=== PATIENT | female | born 1990 | race Two or more races ===

== ENCOUNTER 2016-11-23 19:40 | Emergency (ER) | payer OTHER ==
[2016-11-23 19:54] VITALS: BP 138/83; PULSE 90; TEMP 98.7; BMI 40.4
--- NOTE | 2016-11-23 22:32 | PDOC ---
History of Present Illness - History of Present Illness Initial Comments: 11/23/16 23:17 The patient is a 26 year old female with no past medical hx who presents to the ED complaining of a flare up of hidradenitis this evening. She reports she is experiencing pain to her chest area secondary to her flare up. The patient denies fever, chills The patient denies nausea, vomiting The patient denies dysuria, frequency Social: Former smoker Surgical:Abdominal Allergies:NKDA PCP: Dr. Santoyo <Nicole Becker - Last Filed: 11/23/16 23:17> <Dasia Zepeda - Last Filed: 11/23/16 23:33> - General Chief Complaint: Pain, Acute Stated Complaint: PAIN Time Seen by Provider: 11/23/16 22:15 Past History <Nicole Becker - Last Filed: 11/23/16 23:17> - Past Medical History Cardiac Disorders: Yes (IRREGULAR HEARTBEAT., palpitations) Suicide Attempt (Hx): No Thyroid Disease: Yes (HYPER, GRAVES DISEASE.) Other medical history: hidradenitis - Surgical History Abdominal Surgery: Yes (PARTIAL TUMMY TUCK) - Psycho/Social/Smoking Cessation Hx Anxiety: No Suicidal Ideation: No Smoking Status: Yes Smoking History: Former smoker Have you smoked in the past 12 months: No Number of Cigarettes Smoked Daily: 0 If you are a former smoker, when did you quit?: 2014 Cigars Per Day: 0 Information on smoking cessation initiated: No 'Breaking Loose' booklet given: 11/16/13 Hx Alcohol Use: No Drug/Substance Use Hx: No Substance Use Type: None <Dasia Zepeda - Last Filed: 11/23/16 23:33> - Past Medical History Allergies/Adverse Reactions: Allergies Allergy/AdvReac Type Severity Reaction Status Date / Time No Known Allergies Allergy Verified 11/23/16 19:50 Home Medications: Ambulatory Orders Levothyroxine [Synthroid -] 137 mcg PO DAILY 10/15/15 Sulfamethoxazole/Trimethoprim [Bactrim Ds -] 1 tab PO BID #20 tablet 11/23/16 Review of Systems - Review of Systems Able to Perform ROS?: Yes Comments:: 11/23/16 23:18 CONSTITUTIONAL: Absent: fever, chills, diaphoresis, generalized weakness, malaise, loss of appetite HEENT: Absent: rhinorrhea, nasal congestion, throat pain, throat swelling, difficulty swallowing, mouth swelling, ear pain, eye pain, visual Changes CARDIOVASCULAR: Absent: chest pain, syncope, palpitations, irregular heart rate, lightheadedness , peripheral edema RESPIRATORY: Absent: cough, shortness of breath, dyspnea with exertion, orthopnea, wheezing, stridor, hemoptysis GASTROINTESTINAL: Absent: abdominal pain, abdominal distension, nausea, vomiting, diarrhea, constipation, melena, hematochezia GENITOURINARY: Absent: dysuria, frequency, urgency, hesitancy, hematuria, flank pain, genital pain MUSCULOSKELETAL: Absent: myalgia, arthralgia, joint swelling SKIN: +Lump to her left chest Absent: rash, itching, pallor HEMATOLOGIC/IMMUNOLOGIC: Absent: easy bleeding, easy bruising, lymphadenopathy, frequent infections ENDOCRINE: Absent: unexplained weight gain, unexplained weight loss, heat intolerance, cold intolerance NEUROLOGIC: Absent: headache, focal weakness or paresthesias, dizziness, unsteady gait, seizure, mental status changes, bladder or bowel incontinence PSYCHIATRIC: Absent: anxiety, depression, suicidal or homicidal ideation, hallucinations. <Nicole Becker - Last Filed: 11/23/16 23:17> *Physical Exam - Vital Signs Last Vital Signs Temp Pulse Resp BP Pulse Ox 98.7 F 90 18 138/83 100 11/23/16 19:52 11/23/16 19:52 11/23/16 19:52 11/23/16 19:52 11/23/16 19:52 - Physical Exam Comments: 11/23/16 23:18 GENERAL: Well developed, well nourished. Awake and alert. No acute distress. HEENT: Normocephalic, atraumatic. PERRLA, EOMI. No conjunctival pallor. Sclera are non- icteric. Moist mucous membranes. Oropharynx is clear. NECK: Supple. Full ROM. No JVD. Carotid pulses 2+ and symmetric, without bruits. No thyromegaly. No lymphadenopathy. CARDIOVASCULAR: Regular rate and rhythm. No murmurs, rubs, or gallops. Distal pulses are 2+ and symmetric. PULMONARY: No evidence of respiratory distress. Lungs clear to auscultation bilaterally. No wheezing, rales or rhonchi. ABDOMINAL: Soft. Non-tender. Non-distended. No rebound or guarding. No organomegaly. Normoactive bowel sounds. MUSCULOSKELETAL Normal range of motion at all joints. No bony deformities or tenderness. No CVA tenderness. EXTREMITIES: No cyanosis. No clubbing. No edema. No calf tenderness. SKIN: + 3 cm area of induration and tenderness near left breast, 8oclock, no pointing no fluctuance. Warm and dry. Normal capillary refill. No rashes. No jaundice. NEUROLOGICAL: Alert, awake, appropriate. Cranial nerves 2-12 intact. No deficits to light touch and temperature in face, upper extremities and lower extremities. No motor deficits in the in face, upper extremities and lower extremities. Normoreflexic in the upper and lower extremities. Normal speech. Toes are down-going bilaterally. Gait is normal without ataxia. PSYCHIATRIC: Cooperative. Good eye contact. Appropriate mood and affect. <Nicole Becker - Last Filed: 11/23/16 23:17> - Vital Signs Last Vital Signs Temp Pulse Resp BP Pulse Ox 98.7 F 90 18 138/83 100 11/23/16 19:52 11/23/16 19:52 11/23/16 19:52 11/23/16 19:52 11/23/16 19:52 <Dasia Zepeda - Last Filed: 11/23/16 23:33> Medical Decision Making - Medical Decision Making 11/23/16 23:30 26-year-old female with a long history of hidradenitis presents because of an small abscess near her left abscess. This point, it is not fluctuant, there is some mild induration. There is no evidence of cellulitis. She is not febrile. She's had multiple abscesses and has actually been seen by a surgeon who has done skin grafts to her legs and inner thigh areas. And will be started on Bactrim because the abscess is not at this stage appropriate FOR AN i AND D <Dasia Zepeda - Last Filed: 11/23/16 23:33> *DC/Admit/Observation/Transfer - Attestations Scribe Attestion: 11/23/16 23:18 Documentation prepared by Nicole Becker, acting as manager medical writing for Dasia Zepeda MD/DO. <Nicole Becker - Last Filed: 11/23/16 23:17> <Dasia Zepeda - Last Filed: 11/23/16 23:33> Diagnosis at time of Disposition: Breast abscess, Hydradenitis - Discharge Dispostion Disposition: HOME Condition at time of disposition: Stable - Prescriptions Prescriptions: Sulfamethoxazole/Trimethoprim [Bactrim Ds -] 1 tab PO BID #20 tablet - Referrals Referrals: Shawn Santoyo MD [Primary Care Provider] - - Patient Instructions Printed Discharge Instructions: DI for Skin Abscess Additional Instructions: Please grape picker your antibiotics at your pharmacy. Follow-up with your primary medical doctor.
[2016-11-23] MEDS ORDERED: SULFAMETHOXAZOLE/TRIMETHOPRIM 800MG/160MG D.S. TABLET PO ONE (22:51)
[2016-11-23] MEDS ORDERED: OXYCODONE/APAP 5/325MG COMBO TABLET PO ONE (22:54)
[2016-11-23] MEDS ORDERED: SULFAMETHOXAZOLE/TRIMETHOPRIM 800MG/160MG D.S. TABLET ONE (23:27)
[2016-11-23] MEDS ORDERED: OXYCODONE/APAP 5/325MG COMBO TABLET ONE (23:27)
== END 2016-11-23 23:57 | disposition home or self-care (01) ==
LOC: JER 19:40 → JERFT 19:40 → JER 23:57
DX: N61.1 Abscess of the breast and nipple (principal); L73.2 Hidradenitis suppurativa; R00.2 Palpitations; L49.9 Exfoliation due to erythematous condition involving 90 or more percent of body surface; E05.00 Thyrotoxicosis with diffuse goiter without thyrotoxic crisis or storm; Z87.891 Personal history of nicotine dependence
CPT/HCPCS: 99281-25

== ENCOUNTER 2016-12-24 21:13 | Emergency (ER) | payer OTHER ==
[2016-12-24 21:24] VITALS: BP 123/66; PULSE 87; TEMP 97; BMI 42.4
--- NOTE | 2016-12-24 21:34 | PDOC ---
History of Present Illness - General Chief Complaint: Pain Stated Complaint: RT WRIST INJURY History Source: Patient Exam Limitations: No Limitations - History of Present Illness Occurred: reports: just prior to arrival Upper Extremity Pain Location: right: wrist Method of Injury: reports: twisted Modifying Factors: improves with: None Extremity Pain Location - Extremity Pain Location Extremity Pain Locations: right: other (wrist) Past History - Travel Traveled outside of the country in the last 30 days: No Close contact w/someone who was outside of country & ill: No - Past Medical History Allergies/Adverse Reactions: Allergies Allergy/AdvReac Type Severity Reaction Status Date / Time No Known Allergies Allergy Verified 12/24/16 21:20 Home Medications: Ambulatory Orders Levothyroxine [Synthroid -] 137 mcg PO DAILY 10/15/15 Oxycodone HCl/Acetaminophen [Percocet 5-325 mg Tablet] 1 tab PO BID #4 tablet MDD 2 11/23/16 Sulfamethoxazole/Trimethoprim [Bactrim Ds -] 1 tab PO BID #20 tablet 11/23/16 Cardiac Disorders: Yes (IRREGULAR HEARTBEAT., palpitations) Suicide Attempt (Hx): No Thyroid Disease: Yes (HYPER, GRAVES DISEASE.) - Surgical History Abdominal Surgery: Yes (PARTIAL TUMMY TUCK) - Immunization History Immunization Up to Date: No - Psycho/Social/Smoking Cessation Hx Anxiety: No Suicidal Ideation: No Smoking Status: Yes Smoking History: Never smoked Have you smoked in the past 12 months: No Number of Cigarettes Smoked Daily: 0 If you are a former smoker, when did you quit?: 2014 Cigars Per Day: 0 Information on smoking cessation initiated: Yes 'Breaking Loose' booklet given: 11/16/13 Hx Alcohol Use: No Drug/Substance Use Hx: No Substance Use Type: None Review of Systems - Review of Systems Able to Perform ROS?: Yes Comments:: right wrist pain neg ext numbness/tingling sensation Is the patient limited Azerbaijani proficient: No *Physical Exam - Vital Signs Last Vital Signs Temp Pulse Resp BP Pulse Ox 97.0 F L 87 20 123/66 99 12/24/16 21:17 12/24/16 21:17 12/24/16 21:17 12/24/16 21:17 12/24/16 21:17 - Physical Exam Comments: 12/24/16 21:32 Right wrist Decreased R.O.M./pain 2+radial pulse neg obv deformities Slight pain on lat aspect on palp Right hand F.R>O.M. Neg obv def Neg pain on palp Right elbow F.R.O.M. neg pain on palp neg obv deformities Progress Note - Progress Note Progress Note: 26-year-old female who is right hand dominant presents to the emergency department complaining of right wrist pain. 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 Patient denies any elbow, hand pain or extremity numbness or tingling sensation. The pain is exacerbated on touch and hyperextension and alleviated at rest with ice. *DC/Admit/Observation/Transfer Diagnosis at time of Disposition: Right wrist sprain Qualifiers: Encounter type: initial encounter Qualified Code(s): S63.501A - Unspecified sprain of right wrist, initial encounter - Discharge Dispostion Disposition: HOME Condition at time of disposition: Fair - Referrals Referrals: Shawn Santoyo MD [Primary Care Provider] - Genaro Lau MD [Staff Physician] - - Patient Instructions Additional Instructions: Follow up with the orthopedic surgeon listed on your discharge form Ice; 20 mins on alternating with 20 mins off for 48 hours while awake. Rest Elevate Follow up with your orthopedic surgeon or the one listed on the discharge form. Return to the ER for severe/persistent/worsening symptoms, extremity numbness/ tingling sensation.
== END 2016-12-24 23:43 | disposition home or self-care (01) ==
LOC: SUPCPDRO 21:13 → JERFT 21:13 → JER 21:13
DX: S63.591A Other specified sprain of right wrist, initial encounter (principal); X50.9XXA Other and unspecified overexertion or strenuous movements or postures, initial encounter; Y93.89 Activity, other specified; Y92.218 Other school as the place of occurrence of the external cause; Y99.0 Civilian activity done for income or pay
CPT/HCPCS: 73110-TC-RT; 99283-25

== ENCOUNTER 2017-05-07 13:07 | Emergency (ER) | payer OTHER ==
[2017-05-07 13:13] VITALS: TEMP 98.8; BMI 41.5
[2017-05-07] MEDS ORDERED: SODIUM CHLORIDE 1,000 ML IV STA (14:22)
[2017-05-07] MEDS ORDERED: morphine CARPU-JECT 4 MG/1 ML DISP.SYRIN IVPUSH ONE (14:22)
--- NOTE | 2017-05-07 14:22 | PDOC ---
History of Present Illness - General History Source: Patient, Old Records Exam Limitations: No Limitations - History of Present Illness Initial Comments: 05/07/17 14:28 The patient is a 19 year old female with history of hypothyroidism who presents to the ED with a pilonidal abscess. The patient states that she has had the abscess since the age of 7 and has since undergone many drainage procedures. She reports pain to the area. The patient denies any recent illness, fever, chills, nausea, vomiting, diarrhea, cough, shortness of breath, chest pain, or urinary symptoms. PCP: Shawn Santoyo <Ann Jacome - Last Filed: 05/07/17 14:30> <Liliana Lindo - Last Filed: 05/07/17 18:11> <Maria M Payton - Last Filed: 05/08/17 10:53> - General Chief Complaint: Abscess Boil Stated Complaint: CYST Time Seen by Provider: 05/07/17 13:50 Past History <Ann Jacome - Last Filed: 05/07/17 14:30> <Liliana Lindo - Last Filed: 05/07/17 18:11> - Past Medical History Cardiac Disorders: Yes (IRREGULAR HEARTBEAT., palpitations) Suicide Attempt (Hx): No Thyroid Disease: Yes (HYPER, GRAVES DISEASE.) - Surgical History Abdominal Surgery: Yes (PARTIAL TUMMY TUCK) - Immunization History Immunization Up to Date: No - Psycho/Social/Smoking Cessation Hx Anxiety: No Suicidal Ideation: No Smoking Status: Yes Smoking History: Never smoked Have you smoked in the past 12 months: No Number of Cigarettes Smoked Daily: 0 If you are a former smoker, when did you quit?: 2014 Cigars Per Day: 0 'Breaking Loose' booklet given: 11/16/13 Hx Alcohol Use: No Drug/Substance Use Hx: No Substance Use Type: None <Maria M Payton - Last Filed: 05/08/17 10:53> - Past Medical History Allergies/Adverse Reactions: Allergies Allergy/AdvReac Type Severity Reaction Status Date / Time No Known Allergies Allergy Verified 05/07/17 13:13 Home Medications: Ambulatory Orders Levothyroxine [Synthroid -] 137 mcg PO DAILY 10/15/15 Cephalexin Monohydrate [Keflex -] 500 mg PO Q6H #28 capsule 05/07/17 Ibuprofen 600 mg PO TID PRN #21 tablet 05/07/17 Oxycodone HCl/Acetaminophen [Percocet 5-325 mg Tablet -] 1 tab PO Q6H PRN #12 tablet MDD 4 05/07/17 Sulfamethoxazole/Trimethoprim [Bactrim Ds -] 1 tab PO BID #14 tablet 05/07/17 Review of Systems - Review of Systems Able to Perform ROS?: Yes Comments:: 05/07/17 14:28 GENERAL/CONSTITUTIONAL: No fever or chills. No weakness. HEAD, EYES, EARS, NOSE AND THROAT: No change in vision. No ear pain or discharge. No sore throat. CARDIOVASCULAR: No chest pain or shortness of breath. RESPIRATORY: No cough, wheezing, or hemoptysis. GASTROINTESTINAL: No nausea, vomiting, diarrhea or constipation. GENITOURINARY: No dysuria, frequency, or change in urination. MUSCULOSKELETAL: No joint or muscle swelling or pain. No neck or back pain. SKIN: Present: pilonidal abscess No rash NEUROLOGIC: No headache, vertigo, loss of consciousness, or change in strength/ sensation. ENDOCRINE: No increased thirst. No abnormal weight change. HEMATOLOGIC/LYMPHATIC: No anemia, easy bleeding, or history of blood clots. ALLERGIC/IMMUNOLOGIC: No hives or skin allergy. All Other Systems: Reviewed and Negative <Ann Jacome - Last Filed: 05/07/17 14:30> *Physical Exam - Vital Signs Last Vital Signs Temp Pulse Resp BP Pulse Ox 98.8 F 106 H 20 147/91 97 05/07/17 13:10 05/07/17 13:10 05/07/17 13:10 05/07/17 13:10 05/07/17 13:10 <Ann Jacome - Last Filed: 05/07/17 14:30> - Vital Signs Last Vital Signs Temp Pulse Resp BP Pulse Ox 98.8 F 90 18 127/76 99 05/07/17 13:10 05/07/17 18:01 05/07/17 18:01 05/07/17 18:01 05/07/17 18:01 <Liliana Lindo - Last Filed: 05/07/17 18:11> - Vital Signs Last Vital Signs Temp Pulse Resp BP Pulse Ox 98.8 F 106 H 20 147/91 97 05/07/17 13:10 05/07/17 13:10 05/07/17 13:10 05/07/17 13:10 05/07/17 13:10 - Physical Exam Comments: GENERAL: Awake, alert, and fully oriented. Tearful, appears in pain. HEAD: No signs of trauma EYES: PERRLA, EOMI, sclera anicteric, conjunctiva clear ENT: Auricles normal inspection, hearing grossly normal, nares patent, oropharynx clear without exudates. Moist mucosa NECK: Normal ROM, supple, no lymphadenopathy, JVD, or masses LUNGS: Breath sounds equal, clear to auscultation bilaterally. No wheezes, and no crackles HEART: Regular rate and rhythm, normal S1 and S2, no murmurs, rubs or gallops ABDOMEN: Soft, nontender, normoactive bowel sounds. No guarding, no rebound. No masses EXTREMITIES: Normal range of motion, no edema. No clubbing or cyanosis. No cords, erythema, or tenderness NEUROLOGICAL: Cranial nerves II through XII grossly intact. Normal speech, normal gait SKIN: Warm, Dry, normal turgor. +2 indurated, fluctuant areas to the low back just above the crease of the buttocks. Patient unable to lie on her back due to severe pain. <Maria M Payton - Last Filed: 05/08/17 10:53> Procedures - Incision and Drainage I&D Site: Bilateral: Buttock (pilonidal) Anesthesia: 1% Lidocaine Volume(ml): 2 Blade Size: 11 Attempts: 2 Complications: none Dressing: Yes Progress: Pt was extremely anxious about having I&D due to prior negative experiences. I gave her morphine initially due to extreme pain, difficulty with getting an adequate exam. Then prior to I&D, I offered her IV valium to help with anxiety. She accepted. It helped significantly, although she was still awake and oriented during procedure. Area was cleansed, pretreated with ethyl chloride, then injected locally with 1% lidocaine without epi. Both of the fluctuant areas were incised. The right-sided lesion did not drain anything (consistent with prior history as per patient- it is usually very hard but does not drain). The left-sided lesion had multiple loculations that were broken up with hemostat , with moderate drainage of purulent material, which was cultured. Gauze dressing was placed. Pt tolerated well. No complications. <Maria M Payton - Last Filed: 05/08/17 10:53> ED Treatment Course - LABORATORY CBC & Chemistry Diagram: 05/07/17 14:43 05/07/17 14:43 - ADDITIONAL ORDERS Additional order review: Laboratory Results 05/07/17 05/07/17 14:43 14:43 Sodium 142 Potassium 3.9 Chloride 105 Carbon Dioxide 30 Anion Gap 7 L BUN 11 D Creatinine 0.8 Creat Clearance w eGFR > 60 Random Glucose 76 D Calcium 8.5 Total Bilirubin 0.3 D AST 14 L ALT 22 Alkaline Phosphatase 93 Total Protein 6.9 Albumin 3.3 L Serum , Qual Negative 05/07/17 14:43 RBC 4.39 MCV 86.7 MCHC 33.2 RDW 13.7 MPV 10.1 Neutrophils % 80.8 D Lymphocytes % 12.8 D Monocytes % 5.3 Eosinophils % 0.7 Basophils % 0.4 - Medications Given in the ED: ED Medications Discontinued Medications Generic Name Dose Route Start Last Admin Trade Name Freq PRN Reason Stop Dose Admin Diazepam 5 mg 05/07/17 15:54 05/07/17 15:59 Valium Injection - IVPUSH 05/07/17 15:55 5 mg ONCE ONE Administration Diazepam 5 mg 05/07/17 16:21 05/07/17 16:50 Valium Injection - IVPUSH 05/07/17 16:22 5 mg ONCE ONE Administration Sodium Chloride 1,000 mls @ 1,000 mls/hr 05/07/17 14:22 05/07/17 14:45 Normal Saline - IV 05/07/17 15:21 1,000 mls/hr ASDIR STA Administration Morphine Sulfate 4 mg 05/07/17 14:22 05/07/17 14:45 Morphine Injection - IVPUSH 05/07/17 14:23 4 mg ONCE ONE Administration <Liliana Lindo - Last Filed: 05/07/17 18:11> - LABORATORY CBC & Chemistry Diagram: 05/07/17 14:43 05/07/17 14:43 <Maria M Payton - Last Filed: 05/08/17 10:53> Medical Decision Making - Medical Decision Making Instructed patient to use warm salt water soaks twice a day to keep the wound draining. I also counseled her that with the depth of the wound, it is possible that another area may accumulate. Return to the ED if it becomes more painful and swollen, as she may need additional drainage. Keflex and bactrim for abx. DC with outpatient PMD f/u. Endorsed to Dr. Lindo at 6pm. I have done the discharge paperwork, but she is still slightly drowsy from the valium. Monitor until she is back to baseline. <Maria M Payton - Last Filed: 05/08/17 10:53> *DC/Admit/Observation/Transfer - Attestations Scribe Attestion: 05/07/17 14:29 Documentation prepared by Ann Jacome, acting as medical assistant cardiology for Maria M Payton MD. <Ann Jacome - Last Filed: 05/07/17 14:30> <Liliana Lindo - Last Filed: 05/07/17 18:11> - Discharge Dispostion Admit: No <Maria M Payton - Last Filed: 05/08/17 10:53> Diagnosis at time of Disposition: Pilonidal abscess - Discharge Dispostion Disposition: HOME Condition at time of disposition: Stable - Prescriptions Prescriptions: Sulfamethoxazole/Trimethoprim [Bactrim Ds -] 1 tab PO BID #14 tablet Ibuprofen 600 mg PO TID PRN #21 tablet PRN Reason: Pain Cephalexin Monohydrate [Keflex -] 500 mg PO Q6H #28 capsule Oxycodone HCl/Acetaminophen [Percocet 5-325 mg Tablet -] 1 tab PO Q6H PRN #12 tablet MDD 4 PRN Reason: Severe Pain - Referrals Referrals: Shawn Santoyo MD [Primary Care Provider] - - Patient Instructions Printed Discharge Instructions: DI for Incision and Drainage of a Skin Abscess Additional Instructions: Warm salt water soaks twice per day. Gauze dressing. Return to the ER if the pain worsens or the swelling returns. - Post Discharge Activity Work/School Note: Parent(s) Back to Work Note
[2017-05-07] MEDS ORDERED: morphine CARPU-JECT 4 MG/1 ML DISP.SYRIN ONE (14:35)
[2017-05-07 14:46] LABS: BASOPHIL 0.4 % (0-2.0); EOSINOPHIL 0.7 % (0-4.5); MCH 28.7 pg (25.7-33.7); MCHC 33.2 g/dl (32.0-36.0); MEAN CELL VOLUME 86.7 fl (80-96); MEAN PLT VOLUME 10.1 fl (7.5-11.1); NEUTROPHILS 80.8 % (42.8-82.8); PLATELET COUNT 166 K/MM3 (134-434); RDW 13.7 % (11.6-15.6); WHITE BLOOD COUNT 12.4 K/mm3 (4.0-10.0)
[2017-05-07 15:15] LABS: ALBUMIN 3.3 g/dl (3.4-5.0); ALK PHOS 93 U/L (45-117); ANION GAP 7 (8-16); BILIRUBIN,TOTAL 0.3 mg/dL (0.2-1.0); CALCIUM 8.5 mg/dL (8.5-10.1); CO2 30 mmol/L (21-32); CREATININE 0.8 mg/dL (0.55-1.02); GLUCOSE,RANDOM 76 mg/dL (74-106); SGOT/AST 14 U/L (15-37); SGPT/ALT 22 U/L (12-78); TOT PROT 6.9 g/dl (6.4-8.2)
[2017-05-07] MEDS ORDERED: diazePAM CARPU-JECT 10 MG/2 ML DISP.SYRIN IVPUSH ONE ×2 (15:54→16:21)
[2017-05-07] MEDS ORDERED: diazePAM CARPU-JECT 10 MG/2 ML DISP.SYRIN ONE (15:56)
[2017-05-07] MEDS ORDERED: CEPHALEXIN MONOHYDRATE 500 MG CAPSULE (UD) PO ONE (17:20)
[2017-05-07] MEDS ORDERED: FLUCONAZOLE 100 MG TABLET (UD) PO ONE (17:20)
[2017-05-07] MEDS ORDERED: SULFAMETHOXAZOLE/TRIMETHOPRIM 800MG/160MG D.S. TABLET PO ONE (17:20)
[2017-05-07] MEDS ORDERED: FLUCONAZOLE 100 MG TABLET (UD) ONE (17:47)
[2017-05-07] MEDS ORDERED: SULFAMETHOXAZOLE/TRIMETHOPRIM 800MG/160MG D.S. TABLET ONE (17:47)
[2017-05-07] MEDS ORDERED: CEPHALEXIN MONOHYDRATE 250 MG CAPSULE (FP) ONE (17:47)
[2017-05-07 18:03] VITALS: BP 127/76; PULSE 90
== END 2017-05-07 18:03 | disposition home or self-care (01) ==
LOC: JER 13:07
PROC: 0H98XZZ Drainage of Buttock Skin, External Approach (ICD-10-PCS; principal; 2017-05-07)
PROC: 3E033NZ Introduction of Analgesics, Hypnotics, Sedatives into Peripheral Vein, Percutaneous Approach (ICD-10-PCS; 2017-05-07)
PROC: 3E033NZ Introduction of Analgesics, Hypnotics, Sedatives into Peripheral Vein, Percutaneous Approach (ICD-10-PCS; 2017-05-07)
PROC: 3E033NZ Introduction of Analgesics, Hypnotics, Sedatives into Peripheral Vein, Percutaneous Approach (ICD-10-PCS; 2017-05-07)
DX: L05.01 Pilonidal cyst with abscess (principal)
CPT/HCPCS: 10080; 36415; 80053; 84703; 85025; 87070; 87076; 87077; 87205; 96374; 96375; 99283-25

== ENCOUNTER 2017-06-08 12:48 | Emergency (ER) | payer OTHER ==
[2017-06-08 12:54] VITALS: BMI 41.5
--- NOTE | 2017-06-08 13:10 | PDOC ---
History of Present Illness - History of Present Illness Initial Comments: 06/08/17 15:41 The patient is a 27 year old female, with a significant past medical history of hidradenitis and graves disease (150mg Synthroid daily), who presents to the emergency department with diffuse abdominal pain, nausea, vomiting and diarrhea s/p eating potato, deluca and eggs for breakfast yesterday. She reports her abdominal pain as diffuse, however, add that the pain radiates up to her throat and down to her lower abdomen. She reports numerous episodes of nonbilious/nonbloody vomit since the onset yesterday, with several episodes today. She also reports four episodes of nonbloody, brown diarrhea today. She states she has not eaten since the breakfast yesterday because even when I drank water I vomited. She denies chest pain, shortness of breath, headache and dizziness. She denies fever, chills, and constipation. She denies dysuria, frequency, urgency and hematuria. Allergies: NKDA PCP - Dr. North <Carmen Ordonez - Last Filed: 06/08/17 15:41> - General History Source: Patient Exam Limitations: No Limitations - History of Present Illness Travel History: No <Raman Aragon - Last Filed: 06/08/17 17:33> - General Chief Complaint: Pain Stated Complaint: ABD PAIN, VOMITING Time Seen by Provider: 06/08/17 13:10 Past History <Carmen Ordonez - Last Filed: 06/08/17 15:41> - Past Medical History Cardiac Disorders: Yes (IRREGULAR HEARTBEAT., palpitations) Suicide Attempt (Hx): No Thyroid Disease: Yes (HYPER, GRAVES DISEASE.) - Surgical History Abdominal Surgery: Yes (PARTIAL TUMMY TUCK) - Immunization History Immunization Up to Date: No - Psycho/Social/Smoking Cessation Hx Anxiety: No Suicidal Ideation: No Smoking Status: Yes Smoking History: Never smoked Have you smoked in the past 12 months: No Number of Cigarettes Smoked Daily: 0 If you are a former smoker, when did you quit?: 2013 Cigars Per Day: 0 'Breaking Loose' booklet given: 11/16/13 Hx Alcohol Use: No Drug/Substance Use Hx: No Substance Use Type: None <Raman Aragon - Last Filed: 06/08/17 17:33> - Past Medical History Allergies/Adverse Reactions: Allergies Allergy/AdvReac Type Severity Reaction Status Date / Time No Known Allergies Allergy Verified 06/08/17 12:53 Home Medications: Ambulatory Orders Levothyroxine [Synthroid -] 137 mcg PO DAILY 10/15/15 Cephalexin Monohydrate [Keflex -] 500 mg PO Q6H #28 capsule 05/07/17 Ibuprofen 600 mg PO TID PRN #21 tablet 05/07/17 Oxycodone HCl/Acetaminophen [Percocet 5-325 mg Tablet -] 1 tab PO Q6H PRN #12 tablet MDD 4 05/07/17 Sulfamethoxazole/Trimethoprim [Bactrim Ds -] 1 tab PO BID #14 tablet 05/07/17 Ondansetron [Zofran -] 4 mg PO TID PRN #14 tablet 06/08/17 Review of Systems - Review of Systems Able to Perform ROS?: Yes Comments:: 06/08/17 15:41 CONSTITUTIONAL: No reported: Fever, Chills, Diaphoresis, Generalized Weakness, Malaise, Loss of Appetite HEENT: No reported: Rhinorrhea, Nasal Congestion, Throat Pain, Throat Swelling, Difficulty Swallowing, Mouth Swelling, Ear Pain, Eye Pain, Visual Changes CARDIOVASCULAR: No reported: Chest Pain, Syncope, Palpitations, Irregular Heart Rate, Lightheadedness, Peripheral Edema RESPIRATORY: No reported: Cough, Shortness of Breath, SOB with Exertion, Orthopnea, Wheezing , Stridor, Hemoptysis GASTROINTESTINAL: (+) Abdominal pain, Nausea, Vomiting, Diarrhea,No reported: Abdominal Distension, Constipation, Melena, Hematochezia GENITOURINARY: No reported: Dysuria, Frequency, Urgency, Hesitancy, Flank Pain, Genital Pain MUSCULOSKELETAL: No reported: Myalgia, Arthralgia, Joint Swelling, Back pain, Neck Pain SKIN: No reported: Rash, Itching, Pallor HEMEATOLOGIC/IMMUNOLOGIC: No reported: Easy Bleeding, Easy Bruising, Lymphadenopathy, Frequent infections ENDOCRINE: No reported: Unexplained Weight Gain, Unexplained Weight Loss, Heat Intolerance , Cold Intolerance NEUROLOGIC: No reported: Headache, Focal Weakness, Paresthesias, Vertigo, Lightheadedness, Unsteady Gait, Seizure, Mental Status Changes, Incontinence PSYCHIATRIC: No reported: Anxiety, Depression <Carmen Ordonez - Last Filed: 06/08/17 15:41> *Physical Exam - Vital Signs Last Vital Signs Temp Pulse Resp BP Pulse Ox 98.1 F 87 20 126/67 100 06/08/17 12:50 06/08/17 12:50 06/08/17 12:50 06/08/17 12:50 06/08/17 13:37 - Physical Exam Comments: 06/08/17 15:41 GENERAL: The patient is awake, alert, and fully oriented, Nontoxic - in no acute distress. HEAD: Normocephalic, atraumatic. EYES: (+) dry mucous membranes, extraocular movements intact, sclera anicteric, conjunctiva clear. ENT: Normal voice, NECK: Normal range of motion, supple LUNGS: Breath sounds equal, clear to auscultation bilaterally. No wheezes, no rhonchi, no rales. HEART: Regular rate and rhythm, without murmur, rub or gallop. ABDOMEN: (+) Obese w/ mild diffuse tenderness. Soft, normoactive bowel sounds. No guarding, no rebound.No CVA tenderness EXTREMITIES: Normal range of motion, no edema. No clubbing or cyanosis. No cords, erythema, or tenderness. NEUROLOGICAL: No facial assymetry, Normal speech, PSYCH: Normal mood, normal affect. SKIN: Warm, Dry, normal turgor, <Carmen Ordonez - Last Filed: 06/08/17 15:41> - Vital Signs Last Vital Signs Temp Pulse Resp BP Pulse Ox 98.1 F 87 20 126/67 97 06/08/17 12:50 06/08/17 12:50 06/08/17 12:50 06/08/17 12:50 06/08/17 12:50 <Raman Aragon - Last Filed: 06/08/17 17:33> ED Treatment Course - LABORATORY CBC & Chemistry Diagram: 06/08/17 13:32 06/08/17 13:32 - ADDITIONAL ORDERS Additional order review: Laboratory Results 06/08/17 13:32 Sodium 138 Potassium 3.8 Chloride 101 Carbon Dioxide 32 Anion Gap 5 L BUN 11 Creatinine 0.8 Creat Clearance w eGFR > 60 Random Glucose 85 Calcium 9.1 Magnesium 2.3 Total Bilirubin 0.3 AST 21 D ALT 29 D Alkaline Phosphatase 101 Total Protein 8.1 Albumin 4.0 D 06/08/17 13:32 RBC 5.00 MCV 88.0 MCHC 32.5 RDW 14.8 MPV 10.3 Neutrophils % 78.3 Lymphocytes % 16.7 D Monocytes % 3.8 Eosinophils % 0.7 Basophils % 0.5 - Medications Given in the ED: ED Medications Discontinued Medications Generic Name Dose Route Start Last Admin Trade Name Xiomara PRN Reason Stop Dose Admin Sodium Chloride 1,000 mls @ 1,000 mls/hr 06/08/17 13:16 06/08/17 13:24 Normal Saline - IV 06/08/17 14:15 1,000 mls/hr .Q1H ONE Administration Sodium Chloride 1,000 mls @ 1,000 mls/hr 06/08/17 14:39 06/08/17 14:53 Normal Saline - IV 06/08/17 15:38 1,000 mls/hr .Q1H ONE Administration Morphine Sulfate 2 mg 06/08/17 14:38 06/08/17 14:45 Morphine Injection - IVPUSH 06/08/17 14:39 2 mg ONCE ONE Administration Ondansetron HCl 4 mg 06/08/17 13:16 06/08/17 13:31 Zofran Injection IVPB 06/08/17 13:17 4 mg ONCE ONE Administration <Carmen Ordonez - Last Filed: 06/08/17 15:41> - LABORATORY CBC & Chemistry Diagram: 06/08/17 13:32 06/08/17 13:32 <Raman Aragon - Last Filed: 06/08/17 17:33> Medical Decision Making - Medical Decision Making 06/08/17 14:38 27y F hx of hypothyroidism presents with n/v/d x 1 day associated with abdominal cramping. nbnb vomiting, and non bloody/nonmelantic diarrhea, no associagted f/c. on exam pt wel lappearing, mild diffuse tenderness w/o focality suspect viral gastroenteritis will hydrate zofran for sytmatomic releif will obtain basic labs wlil reasess, consider appendicits but no focal tenderness to suggest localized peritonitis A portion of this note was documented by scribe services under my direction. I have reviewed the details of the note, within reason, and agree with the documentation with the following case summary and management plan written by me 06/08/17 17:28 pt feeling improved labs reiewed abd resassessed and iss soft nontender will dc the pt with pmd fu will give zofran for sypmtomatic relief return precautions were discussed for worsening pain or signs of appencitis I discussed the physical exam findings, ancillary test results and final diagnoses with the patient. I answered all of the patient's questions. The patient was satisfied with the care received and felt comfortable with the discharge plan and treatment plan. The patient will call their primary care physician within 24 hours to arrange follow-up and will return to the Emergency Department with any new, persistent or worsening symptoms. <Raman Aragon - Last Filed: 06/08/17 17:33> *DC/Admit/Observation/Transfer - Attestations Scribe Attestion: 06/08/17 15:41 Documentation prepared by Carmen Ordonez, acting as medical physiologist for Raman Aragon MD <Carmen Ordonez - Last Filed: 06/08/17 15:41> - Discharge Dispostion Admit: No <Raman Aragon - Last Filed: 06/08/17 17:33> Diagnosis at time of Disposition: Gastroenteritis - Discharge Dispostion Disposition: HOME Condition at time of disposition: Improved - Prescriptions Prescriptions: Ondansetron [Zofran -] 4 mg PO TID PRN #14 tablet PRN Reason: Nausea - Referrals Referrals: Shawn Santoyo MD [Primary Care Provider] - - Patient Instructions Printed Discharge Instructions: DI for Viral Gastroenteritis -- Adult Additional Instructions: Return to the emergency department immediately with ANY new, persistent or worsening symptoms including worsening abdominal pain, fevers, inability to tolerate oral intake, chest pain, shortness of breath or any other concerns. Stay well hydrated. Take zofran as eneded for nausea. You MUST call and follow up with your doctor tomorrow. Your emergency department visit is not complete without a followup with your doctor for reevaluation. Please make sure your doctor reviews the results of your emergency evaluation.
[2017-06-08] MEDS ORDERED: ONDANSETRON 4 MG/2 ML VIAL IVPB ONE (13:16)
[2017-06-08] MEDS ORDERED: SODIUM CHLORIDE 1,000 ML IV ONE ×2 (13:16→14:39)
[2017-06-08] MEDS ORDERED: ONDANSETRON 4 MG/2 ML VIAL ONE (13:26)
[2017-06-08 13:48] LABS: BASOPHIL 0.5 % (0-2.0); EOSINOPHIL 0.7 % (0-4.5); MCH 28.6 pg (25.7-33.7); MCHC 32.5 g/dl (32.0-36.0); MEAN PLT VOLUME 10.3 fl (7.5-11.1); NEUTROPHILS 78.3 % (42.8-82.8); PLATELET COUNT 176 K/MM3 (134-434); RDW 14.8 % (11.6-15.6); WHITE BLOOD COUNT 11.3 K/mm3 (4.0-10.0)
[2017-06-08 14:15] LABS: ANION GAP 5 (8-16); BILIRUBIN,TOTAL 0.3 mg/dL (0.2-1.0); CALCIUM 9.1 mg/dL (8.5-10.1); CO2 32 mmol/L (21-32); CREATININE 0.8 mg/dL (0.55-1.02); GLUCOSE,RANDOM 85 mg/dL (74-106); MAGNESIUM 2.3 mg/dL (1.8-2.4); SGOT/AST 21 U/L (15-37); SGPT/ALT 29 U/L (12-78); TOT PROT 8.1 g/dl (6.4-8.2)
[2017-06-08 14:16] LABS: ALK PHOS 101 U/L (45-117)
[2017-06-08] MEDS ORDERED: morphine CARPU-JECT 2 MG/1 ML DISP.SYRIN IVPUSH ONE (14:38)
[2017-06-08] MEDS ORDERED: morphine CARPU-JECT 2 MG/1 ML DISP.SYRIN ONE (14:41)
[2017-06-08 15:57] LABS: URINE APPEARANCE CLOUDY; URINE BILIRUBIN NEGATIVE (NEGATIVE); URINE BLOOD 1+ (NEGATIVE); URINE COLOR LTYELLOW; URINE GLUCOSE (UA) NEGATIVE (NEGATIVE); URINE KETONE TRACE (NEGATIVE); URINE LEUK ESTERASE NEGATIVE (NEGATIVE); URINE NITRITE NEGATIVE (NEGATIVE); URINE PROTEIN NEGATIVE (NEGATIVE); URINE UROBILINOGEN NEGATIVE mg/dL (0.2-1.0)
[2017-06-08 17:39] LABS: URINE MUCUS RARE; URINE RBC 7 /hpf (0-3); URINE WBC <1 /hpf (3-5)
[2017-06-08 17:46] VITALS: BP 125/76; PULSE 68; TEMP 98
== END 2017-06-08 17:48 | disposition home or self-care (01) ==
LOC: JER 12:48
PROC: 3E033NZ Introduction of Analgesics, Hypnotics, Sedatives into Peripheral Vein, Percutaneous Approach (ICD-10-PCS; principal; 2017-06-08)
PROC: 3E033GC Introduction of Other Therapeutic Substance into Peripheral Vein, Percutaneous Approach (ICD-10-PCS; 2017-06-08)
PROC: 3E0337Z Introduction of Electrolytic and Water Balance Substance into Peripheral Vein, Percutaneous Approach (ICD-10-PCS; 2017-06-08)
DX: K52.9 Noninfective gastroenteritis and colitis, unspecified (principal)
CPT/HCPCS: 36415; 80053; 81003; 81015; 83735; 84703; 85025; 96361; 96374; 96375; 99283-25

== ENCOUNTER 2017-07-15 19:58 | Emergency (ER) | payer OTHER ==
[2017-07-15 20:08] VITALS: BP 152/73; PULSE 73; TEMP 98; BMI 40.2
--- NOTE | 2017-07-15 21:40 | PDOC ---
History of Present Illness - General Chief Complaint: Vaginal Sxs Stated Complaint: SKIN CONDITION Time Seen by Provider: 07/15/17 20:21 History Source: Patient Exam Limitations: No Limitations - History of Present Illness Initial Comments: 07/15/17 22:05 27-year-old female with a history of hidradenitis presents to the emergency department complaining of abscess to the left groin, mid back and left labia x2d. Patient denies any fever, chills, nausea/vomiting, chest pain, shortness of breath, abdominal pains, urinary symptoms: Frequency/urgency/hesitancy, hematuria. Patient has a history of hidradenitis. Timing/Duration: reports: week Location: reports: none Respiratory Risk Factors: reports: no cause identified Associated Symptoms: reports: denies symptoms Past History - Past Medical History Allergies/Adverse Reactions: Allergies Allergy/AdvReac Type Severity Reaction Status Date / Time No Known Allergies Allergy Verified 07/15/17 20:07 Home Medications: Ambulatory Orders Levothyroxine [Synthroid -] 150 mcg PO HS 10/15/15 Spironolactone 25 mg PO BID 07/15/17 Sulfamethoxazole/Trimethoprim [Bactrim Ds -] 1 tab PO BID #14 tablet 07/15/17 Cardiac Disorders: Yes (IRREGULAR HEARTBEAT., palpitations) Suicide Attempt (Hx): No Thyroid Disease: Yes (HYPER, GRAVES DISEASE.) Other medical history: PCOS - Surgical History Abdominal Surgery: Yes (PARTIAL TUMMY TUCK) - Immunization History Immunization Up to Date: No - Psycho/Social/Smoking Cessation Hx Anxiety: No Suicidal Ideation: No Smoking Status: Yes Smoking History: Never smoked Have you smoked in the past 12 months: No Number of Cigarettes Smoked Daily: 0 If you are a former smoker, when did you quit?: 2013 Cigars Per Day: 0 Information on smoking cessation initiated: No 'Breaking Loose' booklet given: 11/16/13 Hx Alcohol Use: No Drug/Substance Use Hx: No Substance Use Type: None Review of Systems - Review of Systems Able to Perform ROS?: Yes Comments:: 07/15/17 22:06 CONSTITUTIONAL: Absent: fever, chills, diaphoresis, generalized weakness, malaise, loss of appetite HEENT: Absent: rhinorrhea, nasal congestion, throat pain, throat swelling, difficulty swallowing, mouth swelling, ear pain, eye pain, visual Changes CARDIOVASCULAR: Absent: chest pain, loss of consciousness, palpitations, irregular heart rate, peripheral edema RESPIRATORY: Absent: cough, shortness of breath, dyspnea with exertion, orthopnea, wheezing, stridor, hemoptysis GASTROINTESTINAL: Absent: abdominal pain, abdominal distension, nausea, vomiting, diarrhea, constipation, melena, hematochezia GENITOURINARY: Absent: dysuria, frequency, urgency, hesitancy, hematuria, flank pain, genital pain MUSCULOSKELETAL: Absent: myalgia, arthralgia, joint swelling SKIN: left labia/left groain/left lower back early abscess Absent: rash, itching, pallor HEMATOLOGIC/IMMUNOLOGIC: Absent: easy bleeding, easy bruising, lymphadenopathy, frequent infections ENDOCRINE: Absent: unexplained weight gain, unexplained weight loss, heat intolerance, cold intolerance NEUROLOGIC: Absent: headache, focal weakness or paresthesias, dizziness, unsteady gait, seizure, mental status changes, bladder or bowel incontinence PSYCHIATRIC: Absent: anxiety, depression, suicidal or homicidal ideation, hallucinations. Is the patient limited Tajik proficient: No *Physical Exam - Vital Signs Last Vital Signs Temp Pulse Resp BP Pulse Ox 98.0 F 73 18 152/73 100 07/15/17 20:05 07/15/17 20:05 07/15/17 20:05 07/15/17 20:05 07/15/17 20:05 - Physical Exam Comments: 07/15/17 21:44 GENERAL: Well developed, well nourished. Awake and alert. No acute distress. HEENT: Normocephalic, atraumatic. PERRLA, EOMI. No conjunctival pallor. Sclera are non- icteric. Moist mucous membranes. Oropharynx is clear. NECK: Supple. Full ROM. No JVD. Carotid pulses 2+ and symmetric, without bruits. No thyromegaly. No lymphadenopathy. CARDIOVASCULAR: Regular rate and rhythm. No murmurs, rubs, or gallops. Distal pulses are 2+ and symmetric. PULMONARY: No evidence of respiratory distress. Lungs clear to auscultation bilaterally. No wheezing, rales or rhonchi. ABDOMINAL: Soft. Non-tender. Non-distended. No rebound or guarding. No organomegaly. Normoactive bowel sounds. SKIN: Warm and dry. Normal capillary refill. No rashes. No jaundice. left labia: 1cm indurated without drainage/lymphangitis Left groin: (2) ~1cm without drainage/lymphangitis right lower back: 1.5cm indrated skin. neg drainage/lymphangitis *DC/Admit/Observation/Transfer Diagnosis at time of Disposition: Abscess, Hydradenitis - Discharge Dispostion Disposition: HOME Condition at time of disposition: Stable Admit: No - Prescriptions Prescriptions: Sulfamethoxazole/Trimethoprim [Bactrim Ds -] 1 tab PO BID #14 tablet - Referrals Referrals: Shawn Santoyo MD [Primary Care Provider] - - Patient Instructions Printed Discharge Instructions: Hidradenitis Suppurativa Additional Instructions: Warm compress Rx: Bactrim DS 1 tabelt twice a day for 7 days Follow up with dermatology or your physician [place] to the ER for severe/persistent/worsening symptoms
[2017-07-15] MEDS ORDERED: CEPHALEXIN MONOHYDRATE 500 MG CAPSULE (UD) PO ONE (22:26)
[2017-07-15] MEDS ORDERED: SULFAMETHOXAZOLE/TRIMETHOPRIM 800MG/160MG D.S. TABLET PO ONE (22:28)
[2017-07-15] MEDS ORDERED: SULFAMETHOXAZOLE/TRIMETHOPRIM 800MG/160MG D.S. TABLET ONE (22:28)
== END 2017-07-15 22:31 | disposition home or self-care (01) ==
LOC: SUPCPDRO 19:58 → JER 19:58
DX: L73.2 Hidradenitis suppurativa (principal); E05.00 Thyrotoxicosis with diffuse goiter without thyrotoxic crisis or storm; E28.2 Polycystic ovarian syndrome
CPT/HCPCS: 99281-25

== ENCOUNTER 2017-10-02 00:13 | Emergency (ER) | payer OTHER ==
--- NOTE | 2017-10-02 00:19 | PDOC ---
History of Present Illness - General History Source: Patient Exam Limitations: No Limitations - History of Present Illness Initial Comments: 10/02/17 00:36 The patient is a 27 year old female with a significant past medical history of diabetes, PCOS, and Graves disease who presents to the ED with complaints of abdominal pain, vomiting, and diarrhea for several hours. The patient reports she was in [facility] earlier today and she ordered a burger. She reports 5 episodes of nonbilious vomiting and 5 episodes of watery stool since eating the burger. She also report sharp epigastric cramping associated with present symptoms. Denies fever or chills. Denies dysuria or change in urinary output. Denies chest pain or shortness of breath. Denies any other symptoms. <Vishnu Luque - Last Filed: 10/02/17 00:36> <Inés Roldan - Last Filed: 10/02/17 01:27> <Zuleyma Wise - Last Filed: 10/02/17 02:36> - General Stated Complaint: VOMITING Time Seen by Provider: 10/02/17 00:19 Past History <Vishnu Luque - Last Filed: 10/02/17 00:36> - Past Medical History Cardiac Disorders: Yes (IRREGULAR HEARTBEAT., palpitations) Thyroid Disease: Yes (HYPER, GRAVES DISEASE.) - Surgical History Abdominal Surgery: Yes (PARTIAL TUMMY TUCK) - Immunization History Immunization Up to Date: No - Suicide/Smoking/Psychosocial Hx Smoking Status: Yes Smoking History: Never smoked Have you smoked in the past 12 months: No Number of Cigarettes Smoked Daily: 0 If you are a former smoker, when did you quit?: 2014 Cigars Per Day: 0 'Breaking Loose' booklet given: 11/16/13 Hx Alcohol Use: No Drug/Substance Use Hx: No Substance Use Type: None <Inés Roldan - Last Filed: 10/02/17 01:27> <Zuleyma Wise - Last Filed: 10/02/17 02:36> - Past Medical History Allergies/Adverse Reactions: Allergies Allergy/AdvReac Type Severity Reaction Status Date / Time No Known Allergies Allergy Verified 10/02/17 00:34 Home Medications: Ambulatory Orders Levothyroxine [Synthroid -] 150 mcg PO HS 11/25/15 Spironolactone 25 mg PO BID 07/15/17 Sulfamethoxazole/Trimethoprim [Bactrim Ds -] 1 tab PO BID #14 tablet 07/15/17 Review of Systems - Review of Systems Able to Perform ROS?: Yes Comments:: 10/02/17 00:36 GENERAL/CONSTITUTIONAL: No fever or chills. No weakness. HEAD, EYES, EARS, NOSE AND THROAT: No change in vision. No ear pain or discharge. No sore throat. CARDIOVASCULAR: No chest pain or shortness of breath. RESPIRATORY: No cough, wheezing, or hemoptysis. GASTROINTESTINAL: + nausea, vomiting, diarrhea, abdominal pain. GENITOURINARY: No dysuria, frequency, or change in urination. MUSCULOSKELETAL: No joint or muscle swelling or pain. No neck or back pain. SKIN: No rash NEUROLOGIC: No headache, vertigo, loss of consciousness, or change in strength/ sensation. ENDOCRINE: No increased thirst. No abnormal weight change. HEMATOLOGIC/LYMPHATIC: No anemia, easy bleeding, or history of blood clots. ALLERGIC/IMMUNOLOGIC: No hives or skin allergy. All Other Systems: Reviewed and Negative <Vishnu Luque - Last Filed: 10/02/17 00:36> *Physical Exam - Vital Signs Last Vital Signs Temp Pulse Resp BP Pulse Ox 97.9 F 88 20 104/63 100 10/02/17 00:34 10/02/17 00:34 10/02/17 00:34 10/02/17 00:34 10/02/17 00:34 - Physical Exam Comments: 10/02/17 00:37 GENERAL: Awake, alert, and fully oriented, in no acute distress HEAD: No signs of trauma EYES: PERRLA, EOMI, sclera anicteric, conjunctiva clear ENT: Auricles normal inspection, hearing grossly normal, nares patent, oropharynx clear without exudates. Moist mucosa NECK: Normal ROM, supple, no lymphadenopathy, JVD, or masses LUNGS: Breath sounds equal, clear to auscultation bilaterally. No wheezes, and no crackles HEART: Regular rate and rhythm, normal S1 and S2, no murmurs, rubs or gallops ABDOMEN: + Mild tenderness in the epigastrium. Soft, normoactive bowel sounds. No guarding, no rebound. No masses MUSCULOSKELETAL: + Bilateral CVA tenderness EXTREMITIES: Normal range of motion, no edema. No clubbing or cyanosis. No cords, erythema, or tenderness NEUROLOGICAL: Normal speech SKIN: Warm, Dry, normal turgor, no rashes or lesions noted. <Vishnu Luque - Last Filed: 10/02/17 00:36> - Vital Signs Last Vital Signs Temp Pulse Resp BP Pulse Ox 97.9 F 88 20 104/63 100 10/02/17 00:34 10/02/17 00:34 10/02/17 00:34 10/02/17 00:34 10/02/17 00:34 <Zuleyma Wise - Last Filed: 10/02/17 02:36> ED Treatment Course - LABORATORY CBC & Chemistry Diagram: 10/02/17 01:20 10/02/17 01:26 <Inés Roldan - Last Filed: 10/02/17 01:27> - LABORATORY CBC & Chemistry Diagram: 10/02/17 01:20 10/02/17 01:26 - ADDITIONAL ORDERS Additional order review: Laboratory Results 10/02/17 10/02/17 10/02/17 01:26 01:26 00:51 Sodium 142 Potassium 4.0 Chloride 104 Carbon Dioxide 29 Anion Gap 9 BUN 13 Creatinine 0.7 Creat Clearance w eGFR > 60 Random Glucose 92 Calcium 8.8 Total Bilirubin 0.2 D AST 14 L D ALT 27 Alkaline Phosphatase 94 Total Protein 7.9 Albumin 3.7 Lipase 167 Urine Color Yellow Urine Appearance Slcloudy Urine pH 5.0 Ur Specific [place] 1.028 Urine Protein 2+ H Urine Glucose (UA) Negative Urine Ketones Trace H Urine Blood Negative Urine Nitrite Negative Urine Bilirubin Negative Urine Urobilinogen Negative Urine WBC (Auto) 1 Urine RBC (Auto) 6 Ur Epithelial Cells Few Urine Mucus Few Urine HCG, Qual Negative 10/02/17 01:20 RBC 5.06 MCV 86.4 MCHC 33.1 RDW 14.1 MPV 9.9 Neutrophils % 83.5 H Lymphocytes % 11.0 D Monocytes % 4.2 Eosinophils % 0.7 Basophils % 0.6 - Medications Given in the ED: ED Medications Discontinued Medications Generic Name Dose Route Start Last Admin Trade Name Freq PRN Reason Stop Dose Admin Famotidine/Sodium Chloride 20 mg in 50 mls @ 100 mls/hr 10/02/17 02:01 02:14 Pepcid 20 Mg Premixed Ivpb - IVPB 10/02/17 02:30 100 mls/hr ONCE ONE Administration Ondansetron HCl 4 mg 10/02/17 01:23 10/02/17 01:39 Zofran Injection IVPUSH 10/02/17 01:24 4 mg ONCE ONE Administration Sodium Chloride 1,000 ml 10/02/17 01:23 10/02/17 01:38 Normal Saline - IV 10/02/17 01:24 1,000 ml ONCE ONE Administration <Zuleyma Wise - Last Filed: 10/02/17 02:36> Medical Decision Making - Medical Decision Making 10/02/17 01:05 Pt presents to the ED complaining of nausea, vomiting, and profuse, watery diarrhea. Complaining of crampy epigastric pain and is mildly tender in the epigastrium. Differential includes gastroenteritis, pancreatitis, biliary disease, ectopic . Will check labs and u preg, give IV hydration and nausea control and reassess. 10/02/17 01:27 <Inés Roldan - Last Filed: 10/02/17 01:27> *DC/Admit/Observation/Transfer - Attestations Scribe Attestion: 10/02/17 00:37 Documentation prepared by Vishnu Luque, acting as certified medical asst for Inés Roldan MD <Vishnu Luque - Last Filed: 10/02/17 00:36> <Inés Roldan - Last Filed: 10/02/17 01:27> - Discharge Dispostion Admit: No <Zuleyma Wise - Last Filed: 10/02/17 02:36> Diagnosis at time of Disposition: Gastroenteritis - Discharge Dispostion Disposition: HOME Condition at time of disposition: Improved - Referrals Referrals: Shawn Santoyo MD [Primary Care Provider] - - Patient Instructions Printed Discharge Instructions: Viral Gastroenteritis, DI for Food Poisoning - Post Discharge Activity Forms/Work/School Notes: Back to Work
[2017-10-02 01:10] VITALS: BP 104/63; PULSE 88; TEMP 97.9; BMI 40.3
[2017-10-02] MEDS ORDERED: SODIUM CHLORIDE 0.9% 1000 ML INFUS.BAG IV ONE (01:23)
[2017-10-02] MEDS ORDERED: ONDANSETRON 4 MG/2 ML VIAL IVPUSH ONE (01:23)
[2017-10-02] MEDS ORDERED: ONDANSETRON 4 MG/2 ML VIAL ONE (01:24)
[2017-10-02 01:29] LABS: BASOPHIL 0.6 % (0-2.0); EOSINOPHIL 0.7 % (0-4.5); MCH 28.6 pg (25.7-33.7); MCHC 33.1 g/dl (32.0-36.0); MEAN CELL VOLUME 86.4 fl (80-96); MEAN PLT VOLUME 9.9 fl (7.5-11.1); NEUTROPHILS 83.5 % (42.8-82.8); PLATELET COUNT 173 K/MM3 (134-434); RDW 14.1 % (11.6-15.6); WHITE BLOOD COUNT 12.1 K/mm3 (4.0-10.0)
[2017-10-02 01:59] LABS: ALBUMIN 3.7 g/dl (3.4-5.0); ALK PHOS 94 U/L (45-117); ANION GAP 9 (8-16); BILIRUBIN,TOTAL 0.2 mg/dL (0.2-1.0); CALCIUM 8.8 mg/dL (8.5-10.1); CO2 29 mmol/L (21-32); CREATININE 0.7 mg/dL (0.55-1.02); GLUCOSE,RANDOM 92 mg/dL (74-106); SGOT/AST 14 U/L (15-37); SGPT/ALT 27 U/L (12-78); TOT PROT 7.9 g/dl (6.4-8.2)
[2017-10-02] MEDS ORDERED: FAMOTIDINE 20 MG/50 ML IVPB 20 MG/50 ML MG IVPB ONE ×2 (02:01→02:10)
[2017-10-02 02:25] LABS: URINE APPEARANCE SLCLOUDY; URINE BILIRUBIN NEGATIVE (NEGATIVE); URINE BLOOD NEGATIVE (NEGATIVE); URINE COLOR YELLOW; URINE GLUCOSE (UA) NEGATIVE (NEGATIVE); URINE KETONE TRACE (NEGATIVE); URINE NITRITE NEGATIVE (NEGATIVE); URINE UROBILINOGEN NEGATIVE mg/dL (0.2-1.0)
[2017-10-02 02:26] LABS: URINE PROTEIN 2+ (NEGATIVE)
[2017-10-02 02:27] LABS: URINE MUCUS FEW; URINE RBC 6; URINE WBC 1
[2017-10-02 13:30] LABS: URINE LEUK ESTERASE Negative (NEGATIVE)
== END 2017-10-02 02:44 | disposition home or self-care (01) ==
LOC: JER 00:13
PROC: 3E033GC Introduction of Other Therapeutic Substance into Peripheral Vein, Percutaneous Approach (ICD-10-PCS; principal; 2017-10-02)
DX: K52.9 Noninfective gastroenteritis and colitis, unspecified (principal); E11.9 Type 2 diabetes mellitus without complications; E28.2 Polycystic ovarian syndrome; E05.00 Thyrotoxicosis with diffuse goiter without thyrotoxic crisis or storm
CPT/HCPCS: 36415; 80053; 81003; 81015; 83690; 84703; 85025; 96365; 96375; 99283-25

== ENCOUNTER 2017-11-27 13:39 | Emergency (ER) | payer OTHER ==
[2017-11-27 13:48] VITALS: TEMP 98.2; BMI 40.3
--- NOTE | 2017-11-27 15:24 | PDOC ---
Attending Attestation - HPI HPI: 11/27/17 15:31 The patient is a 27 year old female with a past significant medical history of polycystic ovary syndrome who presents to the emergency department with multiple episodes of diarrhea, nausea, and mild left lower quadrant pain non radiating since 2 weeks ago. She reports her symptoms starting after taking metformin 2 weeks ago. She is currently menstruating. The patient denies any dysuria and hematuria. She denies - Physicial Exam PE: 11/27/17 15:44 Vitals: Triage Vital signs reviewed General Appearance: no acute distress, well nourished well developed, Head: Atraumatic, normocephalic Eyes: Pupils equal reactive round, extraocular movement intact Ears: TM's normal bilaterally; Nose: Nares patent bilaterally;no nasal congestion Throat: Posterior oropharynx without erythema, mucous membranes moist, Neck: Supple;No Nuchal rigidity Chest Wall: Nontender Cardiac: Regular rate and rhythm, no murmurs, no rubs, no gallops, Lungs: Clear to auscultation bilateral, good air movement bilaterally, Abdomen: Soft, nondistended, normal bowel sounds, nontender to palpation Rectal: Exam deferred Extremities: Full range of motion to all extremities, no cyanosis, clubbing, or edema Skin: Warm and dry, no rashes or lesions, no petechiae Neuro: AOX3; Cranial Nerves 2-12 grossly c intact, Strength intact to all extremities, Sensation intact to all extremities, gait normal Psych: normal mood, normal affect - Medical Decision Making 11/27/17 15:31 Documentation prepared by Anne Marie Guillermo, acting as vp medical for Morgan Rodriguez MD. <Anne Marie Guillermo - Last Filed: 11/27/17 15:40> - Resident Resident Name: Akhil Chaves - ED Attending Attestation I have performed the following: I have examined & evaluated the patient, The case was reviewed & discussed with the resident, I agree w/resident's findings & plan, Exceptions are as noted - Medical Decision Making 27 years old with nausea vomiting diarrhea left lower quadrant pain on examination. Patient pending pelvic examination. We'll require either transvaginal ultrasound or CT. Dr. Zepeda to reassess and follow-up on results. <Morgan Rodriguez - Last Filed: 11/27/17 17:01>
[2017-11-27] MEDS ORDERED: ONDANSETRON 4 MG/2 ML VIAL IVPUSH ONE (15:45)
[2017-11-27] MEDS ORDERED: SODIUM CHLORIDE 0.9% 1000 ML INFUS.BAG IV ONE (15:45)
--- NOTE | 2017-11-27 15:50 | PDOC ---
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 Denies headaches, sob, chest pain, dysuria, hematuria, syncope. 11/27/17 15:54 Past History - Past Medical History Allergies/Adverse Reactions: Allergies Allergy/AdvReac Type Severity Reaction Status Date / Time No Known Allergies Allergy Verified 11/27/17 13:48 Home Medications: Ambulatory Orders Levothyroxine [Synthroid -] 150 mcg PO HS 10/15/15 Spironolactone 25 mg PO BID 07/15/17 Metformin HCl 500 mg PO BID 11/27/17 Cardiac Disorders: Yes (IRREGULAR HEARTBEAT., palpitations) COPD: No Diabetes: Yes Thyroid Disease: Yes (HYPER, GRAVES DISEASE.) - Surgical History Abdominal Surgery: Yes (PARTIAL TUMMY TUCK) - Immunization History Immunization Up to Date: No - Suicide/Smoking/Psychosocial Hx Smoking Status: Yes Smoking History: Current every day smoker Have you smoked in the past 12 months: No Number of Cigarettes Smoked Daily: 0 If you are a former smoker, when did you quit?: 2013 Cigars Per Day: 3 Information on smoking cessation initiated: No 'Breaking Loose' booklet given: 11/16/13 Hx Alcohol Use: No Drug/Substance Use Hx: No Substance Use Type: None Review of Systems - Review of Systems Able to Perform ROS?: Yes Is the patient limited Micronesian proficient: No Constitutional: No: Symptoms Reported HEENTM: No: Blurred Vision Respiratory: No: Symptoms reported Cardiac (ROS): Yes: See HPI ABD/GI: Yes: See HPI : No: Symptoms Reported Musculoskeletal: No: Symptoms Reported Integumentary: No: Symptoms Reported All Other Systems: Reviewed and Negative *Physical Exam - Vital Signs Last Vital Signs Temp Pulse Resp BP Pulse Ox 98.2 F 83 18 128/81 99 11/27/17 13:45 11/27/17 13:45 11/27/17 13:45 11/27/17 13:45 11/27/17 13:45 - Physical Exam General Appearance: Yes: Appropriately Dressed, Obese. No: Apparent Distress HEENT: positive: EOMI, JESSI, Normal ENT Inspection Neck: negative: Tender Respiratory/Chest: positive: Lungs Clear, Normal Breath Sounds. 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 Feels better with iv fluids and zofran. Basic labs wnl. Pelvic exam negative, doesn't increase LLQ pain. Will do Ct abdomen with contrast. Lab called, ran out of IV contrast. Will use non-contrast. 11/27/17 18:54 Patient signed out to Dr. Zaman *DC/Admit/Observation/Transfer Diagnosis at time of Disposition: Abdominal pain - Referrals Referrals: Shawn Santoyo MD [Primary Care Provider] - - Patient Instructions - Post Discharge Activity
[2017-11-27] MEDS ORDERED: ONDANSETRON 4 MG/2 ML VIAL ONE (16:03)
[2017-11-27 16:08] LABS: BASO % 0.5 % (0-2.0); HEMATOCRIT 42.1 % (32.4-45.2); HEMOGLOBIN 13.9 GM/dL (10.7-15.3); LYMPH % 33.3 % (8-40); MCH 28.3 pg (25.7-33.7); MCHC 32.9 g/dl (32.0-36.0); MEAN CELL VOLUME 85.8 fl (80-96); MEAN PLT VOLUME 10.6 fl (7.5-11.1); MONO % 5.3 % (3.8-10.2); NEUT % 58.9 % (42.8-82.8); PLATELET COUNT 164 K/MM3 (134-434); RDW 14.3 % (11.6-15.6); WHITE BLOOD COUNT 5.7 K/mm3 (4.0-10.0)
[2017-11-27 16:12] LABS: HCG,QUALITATIVE URINE NEGATIVE
[2017-11-27 16:18] LABS: URINE APPEARANCE SLCLOUDY; URINE BILIRUBIN NEGATIVE (NEGATIVE); URINE BLOOD 3+ (NEGATIVE); URINE COLOR LTYELLOW; URINE GLUCOSE (UA) NEGATIVE (NEGATIVE); URINE KETONE NEGATIVE (NEGATIVE); URINE LEUK ESTERASE NEGATIVE (NEGATIVE); URINE NITRITE NEGATIVE (NEGATIVE); URINE PROTEIN NEGATIVE (NEGATIVE); URINE UROBILINOGEN NEGATIVE mg/dL (0.2-1.0)
[2017-11-27 16:49] LABS: ALBUMIN 3.6 g/dl (3.4-5.0); ALK PHOS 98 U/L (45-117); ANION GAP 9 (8-16); BILIRUBIN,TOTAL 0.1 mg/dL (0.2-1.0); BLOOD UREA NITROGEN 11 mg/dL (7-18); CALCIUM 9.1 mg/dL (8.5-10.1); CHLORIDE 102 mmol/L (98-107); CO2 29 mmol/L (21-32); CREATININE 0.7 mg/dL (0.55-1.02); GLUCOSE,RANDOM 81 mg/dL (74-106); POTASSIUM 4.2 mmol/L (3.5-5.1); SGOT/AST 16 U/L (15-37); SGPT/ALT 27 U/L (12-78); SODIUM 140 mmol/L (136-145); TOT PROT 7.7 g/dl (6.4-8.2)
--- NOTE | 2017-11-27 19:14 | PDOC ---
*Physical Exam - Vital Signs Last Vital Signs Temp Pulse Resp BP Pulse Ox 98.2 F 83 18 128/81 99 11/27/17 13:45 11/27/17 13:45 11/27/17 13:45 11/27/17 13:45 11/27/17 13:45 - Physical Exam Comments: 11/27/17 19:16 GENERAL: Awake, alert, and fully oriented, in no acute distress HEAD: No signs of trauma, normocephalic, atraumatic EYES: PERRLA, EOMI, sclera anicteric, conjunctiva clear ENT: Auricles normal inspection, hearing grossly normal, nares patent, oropharynx clear without exudates. Moist mucosa EXTREMITIES: Normal inspection, Normal range of motion, no edema. No clubbing or cyanosis. NEUROLOGICAL: Cranial nerves II through XII grossly intact. Normal speech, normal gait, no focal sensorimotor deficits SKIN: Warm, Dry, normal turgor, no rashes or lesions noted. ED Treatment Course - LABORATORY CBC & Chemistry Diagram: 11/27/17 15:30 11/27/17 15:30 - ADDITIONAL ORDERS Additional order review: Laboratory Results 11/27/17 11/27/17 15:30 15:30 Sodium 140 Potassium 4.2 Chloride 102 Carbon Dioxide 29 Anion Gap 9 BUN 11 Creatinine 0.7 Creat Clearance w eGFR > 60 Random Glucose 81 Calcium 9.1 Total Bilirubin 0.1 L D AST 16 ALT 27 Alkaline Phosphatase 98 Total Protein 7.7 Albumin 3.6 Urine Color Ltyellow Urine Appearance Slcloudy Urine pH 5.0 Ur Specific Odon 1.013 Urine Protein Negative Urine Glucose (UA) Negative Urine Ketones Negative Urine Blood 3+ H Urine Nitrite Negative Urine Bilirubin Negative Urine Urobilinogen Negative Ur Leukocyte Esterase Negative Urine WBC (Auto) 11 Urine RBC (Auto) 2656 Urine HCG, Qual Negative 11/27/17 15:30 RBC 4.90 MCV 85.8 MCHC 32.9 RDW 14.3 MPV 10.6 Neutrophils % 58.9 D Lymphocytes % 33.3 D Monocytes % 5.3 Eosinophils % 2.0 D Basophils % 0.5 - Medications Given in the ED: ED Medications Discontinued Medications Generic Name Dose Route Start Last Admin Trade Name Freq PRN Reason Stop Dose Admin Ondansetron HCl 4 mg 11/27/17 15:45 11/27/17 16:00 Zofran Injection IVPUSH 11/27/17 15:46 4 mg ONCE ONE Administration Sodium Chloride 1,000 ml 11/27/17 15:45 11/27/17 15:59 Normal Saline - IV 11/27/17 15:46 1,000 ml ONCE ONE Administration Medical Decision Making - Medical Decision Making 11/27/17 19:[address] Chaves. Patient is 27F with LLQ pain, pending CT results. CT shows moderate amount of stool, no diverticulitis or diverticulosis. Will reassess. 11/27/17 19:17 Patient reassessed. In coat, asking to go home stating that she feels better. Will discharge with return precautions and PCP follow up. *DC/Admit/Observation/Transfer Diagnosis at time of Disposition: Abdominal pain - Discharge Dispostion Disposition: HOME Condition at time of disposition: Good Admit: No - Referrals Referrals: Shawn Santoyo MD [Primary Care Provider] - - Patient Instructions Printed Discharge Instructions: DI for Abdominal Pain-Adult Additional Instructions: Please return if you have any new, worsening or concerning symptoms. Please follow up with your PCP this week. - Post Discharge Activity
[2017-11-27 19:32] VITALS: BP 126/72; PULSE 80
== END 2017-11-27 19:32 | disposition home or self-care (01) ==
LOC: JER 13:39
PROC: 3E033GC Introduction of Other Therapeutic Substance into Peripheral Vein, Percutaneous Approach (ICD-10-PCS; principal; 2017-11-27)
DX: R10.84 Generalized abdominal pain (principal); E28.2 Polycystic ovarian syndrome; E05.90 Thyrotoxicosis, unspecified without thyrotoxic crisis or storm
CPT/HCPCS: 36415; 74176-TC; 80053; 81003; 81015; 84703; 85025; 96374; 99282-25

== ENCOUNTER 2018-04-11 20:07 | Emergency (ER) | payer OTHER ==
[2018-04-11 20:13] VITALS: BP 133/89; PULSE 92; TEMP 97.6; BMI 41.9
[2018-04-11] MEDS ORDERED: DEXAMETHASONE SOD PHOSPHATE 10 MG/1 ML VIAL IVPUSH ONE (20:15)
[2018-04-11] MEDS ORDERED: SODIUM CHLORIDE 1,000 ML IV STA (20:15)
[2018-04-11] MEDS ORDERED: FAMOTIDINE IV 20 MG/12 ML VIAL IVPUSH ONE (20:16)
--- NOTE | 2018-04-11 20:17 | PDOC ---
Rapid Medical Evaluation Time Seen by Provider: 04/11/18 20:11 Medical Evaluation: Allergies Allergy/AdvReac Type Severity Reaction Status Date / Time No Known Allergies Allergy Verified 02/05/18 20:46 04/11/18 20:11 Allergic reaction to bactrim. Full body itching, chest tightness. New allergic reaction, has taken in the past with no reaction. Exam: Speaking in full sentences. Hives to forearms. Orders: EKG, IV insert, decadron 10mg, pepcid, bendaryl, normal saline Pt. will proceed to ED for further evaluation
[2018-04-11] MEDS ORDERED: FAMOTIDINE 20 MG/50 ML IVPB 20 MG/50 ML MG IVPB ONE (20:18)
[2018-04-11] MEDS ORDERED: DEXAMETHASONE SOD PHOSPHATE 10 MG/1 ML VIAL ONE (20:18)
--- NOTE | 2018-04-11 22:51 | PDOC ---
History of Present Illness - General Chief Complaint: Allergic Reaction Stated Complaint: ALLERGIC REACTION Time Seen by Provider: 04/11/18 20:11 History Source: Patient Exam Limitations: No Limitations - History of Present Illness Initial Comments: 04/11/18 22:46 This is a 28-year-old woman with past medical history of hidradenitis suppurative who presents emergency Department with itching and shortness of breath status post taking Bactrim today. Patient states she has taken Bactrim in the past for hydradenitis without any incident. Patient had a couple of pills left over from her previous prescription and decided to take them today to avoid coming to the hospital. After taking the Bactrim she noticed she had hives over her trunk and arms and began to feel tight in her chest with some shortness of breath with deep inspiration. Past History - Past Medical History Allergies/Adverse Reactions: Allergies Allergy/AdvReac Type Severity Reaction Status Date / Time sulfamethoxazole Allergy Verified 04/11/18 20:13 [From Bactrim] trimethoprim [From Bactrim] Allergy Verified 04/11/18 20:13 Home Medications: Ambulatory Orders Levothyroxine [Synthroid -] 150 mcg PO HS 10/15/15 Spironolactone 25 mg PO BID 07/15/17 Metformin HCl 500 mg PO BID 11/27/17 Cephalexin [Keflex] 500 mg PO QID 5 Days #20 capsule 02/05/18 Fluconazole [Diflucan] 150 mg PO ONCE #1 tablet 02/05/18 Clindamycin [Cleocin -] 300 mg PO BID #20 capsule 04/12/18 Cardiac Disorders: Yes (IRREGULAR HEARTBEAT, palpitations) COPD: No Diabetes: Yes Thyroid Disease: Yes (HYPER, GRAVES DISEASE, pcos) - Surgical History Abdominal Surgery: Yes (PARTIAL TUMMY TUCK) - Immunization History Immunization Up to Date: No - Suicide/Smoking/Psychosocial Hx Smoking Status: Yes Smoking History: Former smoker Have you smoked in the past 12 months: No Number of Cigarettes Smoked Daily: 2 If you are a former smoker, when did you quit?: 2013 Cigars Per Day: 3 Information on smoking cessation initiated: No 'Breaking Loose' booklet given: 11/16/13 Hx Alcohol Use: No Drug/Substance Use Hx: No Substance Use Type: None Review of Systems - Review of Systems Able to Perform ROS?: Yes Is the patient limited Peruvian proficient: No Constitutional: No: Symptoms Reported HEENTM: No: Symptoms Reported Respiratory: Yes: See HPI Cardiac (ROS): No: Symptoms Reported ABD/GI: No: Symptoms Reported : No: Symptoms Reported Musculoskeletal: No: Symptoms Reported Integumentary: Yes: See HPI Neurological: No: Symptoms reported *Physical Exam - Vital Signs Last Vital Signs Temp Pulse Resp BP Pulse Ox 97.6 F 92 H 18 133/89 99 04/11/18 20:10 04/11/18 20:10 04/11/18 20:10 04/11/18 20:10 04/11/18 20:10 - Physical Exam General Appearance: Yes: Appropriately Dressed. No: Apparent Distress HEENT: positive: Normal ENT Inspection Neck: positive: Trachea midline, Supple. negative: Stridor Respiratory/Chest: positive: Lungs Clear, Normal Breath Sounds. negative: Respiratory Distress, Accessory Muscle Use Cardiovascular: positive: Regular Rhythm, Regular Rate. negative: Murmur Gastrointestinal/Abdominal: positive: Normal Bowel Sounds, Soft. negative: Tender Integumentary: positive: Normal Color, Dry, Warm Neurologic: positive: Alert, Normal Response Moderate Sedation - Procedure Monitoring Vital Signs: Vital Signs Temp Pulse Resp BP Pulse Ox 97.6 F 92 H 18 133/89 99 04/11/18 20:10 04/11/18 20:10 04/11/18 20:10 04/11/18 20:10 04/11/18 20:10 ED Treatment Course - Medications Given in the ED: ED Medications Discontinued Medications Generic Name Dose Route Start Last Admin Trade Name Freq PRN Reason Stop Dose Admin Dexamethasone Sodium Phosphate 10 mg 04/11/18 20:15 04/11/18 21:27 Decadron Injection - IVPUSH 04/11/18 20:16 10 mg ONCE ONE Administration Diphenhydramine HCl 50 mg 04/11/18 20:15 04/11/18 21:27 Benadryl Injection - IVPUSH 04/11/18 20:16 50 mg ONCE ONE Administration Famotidine 20 mg in 12 mls @ 144 mls/hr 04/11/18 20:16 04/11/18 21:27 Pepcid 20 Mg/12 Ml Push IVPUSH 04/11/18 20:20 144 mls/hr ONCE ONE Administration Medical Decision Making - Medical Decision Making 04/11/18 22:48 A/P: 28-year-old woman with hydradenitis presents emergency Department with a pruritic rash and shortness of breath status post taking Bactrim today Oropharynx clear without edema noted No stridor or drooling noted Lungs clear to auscultation bilaterally Skin is without lesions warm and dry. Patient itching her wrists during exam Draining lesions noted in bilateral medial breast folds No fluctuance noted to draining lesions Monitor, discharge 04/12/18 00:57 No shortness of breath. Lungs clear to auscultation bilaterally. Patient continues to have no stridor or drooling. Patient does have multiple hydradenitis lesions in multiple areas but all are indurated and not fluctuant. I'll prescribe the patient clindamycin to take as an outpatient and give strict return precautions *DC/Admit/Observation/Transfer Diagnosis at time of Disposition: Hydradenitis Allergic reaction caused by a drug Qualifiers: Encounter type: initial encounter Qualified Code(s): T78.40XA - Allergy, unspecified, initial encounter - Discharge Dispostion Disposition: HOME Condition at time of disposition: Fair Decision to Admit order: No - Prescriptions Prescriptions: Clindamycin [Cleocin -] 300 mg PO BID #20 capsule - Referrals Referrals: Shawn Santoyo MD [Primary Care Provider] - Bartolo Mondragon MD [Staff Physician] - - Patient Instructions Printed Discharge Instructions: DI for Adverse Drug Reaction -- Allergic Additional Instructions: Stop taking Bactrim. Throw away all remaining tablets. Start taking clindamycin 300 mg twice a day for the next 10 days. Take Benadryl 50 mg as needed for shortness of breath, chest tightness or itching. You've been given a referral for Dr. Mondragon who is an ENT specialist. Please make an appointment for ALLERGY confirmation testing. Return to emergency department for any shortness of breath, wheezing, drooling, inability to swallow, or any other concerns - Post Discharge Activity Forms/Work/School Notes: Back to Work
--- NOTE | 2018-04-11 23:50 | PDOC ---
*Physical Exam - Vital Signs Last Vital Signs Temp Pulse Resp BP Pulse Ox 97.6 F 92 H 18 133/89 99 04/11/18 20:10 04/11/18 20:10 04/11/18 20:10 04/11/18 20:10 04/11/18 20:10 ED Treatment Course - Medications Given in the ED: ED Medications Discontinued Medications Generic Name Dose Route Start Last Admin Trade Name Xiomara PRN Reason Stop Dose Admin Dexamethasone Sodium Phosphate 10 mg 04/11/18 20:15 04/11/18 21:27 Decadron Injection - IVPUSH 04/11/18 20:16 10 mg ONCE ONE Administration Diphenhydramine HCl 50 mg 04/11/18 20:15 04/11/18 21:27 Benadryl Injection - IVPUSH 04/11/18 20:16 50 mg ONCE ONE Administration Famotidine 20 mg in 12 mls @ 144 mls/hr 04/11/18 20:16 04/11/18 21:27 Pepcid 20 Mg/12 Ml Push IVPUSH 04/11/18 20:20 144 mls/hr ONCE ONE Administration Medical Decision Making - Medical Decision Making 04/11/18 23:50 agree with care from LOUISE Perez *DC/Admit/Observation/Transfer Diagnosis at time of Disposition: Hydradenitis, Allergic reaction caused by a drug - Discharge Dispostion Disposition: HOME Condition at time of disposition: Fair - Prescriptions Prescriptions: Clindamycin [Cleocin -] 300 mg PO BID #20 capsule - Referrals Referrals: Shawn Santoyo MD [Primary Care Provider] - Barotlo Mondragon MD [Staff Physician] - - Patient Instructions Printed Discharge Instructions: DI for Adverse Drug Reaction -- Allergic Additional Instructions: Stop taking Bactrim. Throw away all remaining tablets. Start taking clindamycin 300 mg twice a day for the next 10 days. Take Benadryl 50 mg as needed for shortness of breath, chest tightness or itching. You've been given a referral for Dr. Mondragon who is an ENT specialist. Please make an appointment for ALLERGY confirmation testing. Return to emergency department for any shortness of breath, wheezing, drooling, inability to swallow, or any other concerns - Post Discharge Activity Forms/Work/School Notes: Back to Work
== END 2018-04-12 01:40 | disposition home or self-care (01) ==
LOC: JER 20:07
DX: T37.0X5A Adverse effect of sulfonamides, initial encounter (principal); L73.2 Hidradenitis suppurativa; E11.9 Type 2 diabetes mellitus without complications; Z79.4 Long term (current) use of insulin; E05.00 Thyrotoxicosis with diffuse goiter without thyrotoxic crisis or storm; E28.2 Polycystic ovarian syndrome
CPT/HCPCS: 99281-25; J1100

== ENCOUNTER 2018-05-03 09:15 | Emergency (ER) | payer OTHER ==
[2018-05-03 09:31] VITALS: BP 137/73; PULSE 77; TEMP 97.9; BMI 41.9
[2018-05-03] MEDS ORDERED: IBUPROFEN 400 MG TABLET (FP) PO ONE ×2 (09:41→09:48)
--- NOTE | 2018-05-03 09:47 | PDOC ---
History of Present Illness - General Chief Complaint: Rash Stated Complaint: RASH Time Seen by Provider: 05/03/18 09:30 History Source: Patient Exam Limitations: No Limitations - History of Present Illness Initial Comments: 05/03/18 09:42 28 yr female with history of hydroadenitis to the groin, underarms pt states today is having a flare up to the groin area no drainage no abd pain neg nvd no fever 05/03/18 12:27 Past History - Past Medical History Allergies/Adverse Reactions: Allergies Allergy/AdvReac Type Severity Reaction Status Date / Time sulfamethoxazole Allergy Verified 05/03/18 09:19 [From Bactrim] trimethoprim [From Bactrim] Allergy Verified 05/03/18 09:19 Home Medications: Ambulatory Orders Levothyroxine [Synthroid -] 150 mcg PO HS 10/15/15 Spironolactone 25 mg PO BID 07/15/17 metFORMIN HCL [Metformin HCl] 500 mg PO BID 11/27/17 Cephalexin [Keflex] 250 mg PO QID #28 capsule 05/03/18 Clindamycin Topical Solution [Cleocin 1% Topical Solution -] 1 ml TP BID #1 bottle 05/03/18 Ibuprofen 800 mg PO TID #30 tablet 05/03/18 Cardiac Disorders: Yes (IRREGULAR HEARTBEAT, palpitations) COPD: No Diabetes: Yes Thyroid Disease: Yes (HYPER, GRAVES DISEASE, pcos) - Surgical History Abdominal Surgery: Yes (PARTIAL TUMMY TUCK) - Immunization History Immunization Up to Date: No - Suicide/Smoking/Psychosocial Hx Smoking Status: Yes Smoking History: Never smoked Have you smoked in the past 12 months: No Number of Cigarettes Smoked Daily: 2 If you are a former smoker, when did you quit?: 2013 Cigars Per Day: 3 'Breaking Loose' booklet given: 11/16/13 Hx Alcohol Use: No Drug/Substance Use Hx: No Substance Use Type: None *Physical Exam - Vital Signs Last Vital Signs Temp Pulse Resp BP Pulse Ox 97.9 F 77 16 137/73 99 05/03/18 09:19 05/03/18 09:19 05/03/18 09:19 05/03/18 09:19 05/03/18 09:19 - Physical Exam General Appearance: Yes: Nourished, Appropriately Dressed HEENT: positive: EOMI, JESSI Neck: positive: Supple Respiratory/Chest: positive: Lungs Clear, Normal Breath Sounds Cardiovascular: positive: Regular Rhythm, Regular Rate Integumentary: positive: Normal Color, Dry, Warm, Other (bilateral inguinal multiple scar tissue , some open areas that are oozing, no large fluctuant abscesses ) Neurologic: positive: Fully Oriented, Alert, Normal Mood/Affect, Normal Response , Motor Strength 5/5 Medical Decision Making - Medical Decision Making 05/03/18 12:31 cc: chronic hyrdoadenitis here today with flare up no fever will prescribe clindamycin topical and keflex oral pt states she has appointment with plastic surgeon in 2 weeks *DC/Admit/Observation/Transfer Diagnosis at time of Disposition: Hydradenitis - Discharge Dispostion Disposition: HOME Condition at time of disposition: Stable - Prescriptions Prescriptions: Cephalexin [Keflex] 250 mg PO QID #28 capsule Clindamycin Topical Solution [Cleocin 1% Topical Solution -] 1 ml TP BID #1 bottle Ibuprofen 800 mg PO TID #30 tablet - Referrals Referrals: Va Stauffer MD [Staff Physician] - - Patient Instructions Printed Discharge Instructions: Hidradenitis Suppurativa Additional Instructions: follow with your primary care as planned or you can also try the nutritional services cook take the medications as prescribed use the Clindamycin topical solution as directed - Post Discharge Activity Forms/Work/School Notes: Back to Work
== END 2018-05-03 09:51 | disposition home or self-care (01) ==
LOC: JER 09:15 → JERFT 09:15
DX: L73.2 Hidradenitis suppurativa (principal); Z87.891 Personal history of nicotine dependence; E11.9 Type 2 diabetes mellitus without complications; R00.2 Palpitations; E05.00 Thyrotoxicosis with diffuse goiter without thyrotoxic crisis or storm
CPT/HCPCS: 99281-25

== ENCOUNTER 2018-05-09 16:55 | Emergency (ER) | payer OTHER ==
[2018-05-09 17:03] VITALS: BP 129/76; PULSE 81; TEMP 98.7; BMI 34.8
--- NOTE | 2018-05-09 17:04 | PDOC ---
Rapid Medical Evaluation Chief Complaint: Laceration Time Seen by Provider: 05/09/18 17:02 Medical Evaluation: Allergies Allergy/AdvReac Type Severity Reaction Status Date / Time sulfamethoxazole Allergy Verified 05/09/18 17:00 [From Bactrim] trimethoprim [From Bactrim] Allergy Verified 05/09/18 17:00 05/09/18 17:02 Patient c/o: left hand lac by knife while cutting chicken, last tdap 2016 Patient on brief exam: 3 cm linear lac to palm between 1st and 2nd digit Pateint ordered for: none Patient to proceed to the ED Discharge Disposition - Diagnosis Laceration of hand - Referrals - Patient Instructions - Post Discharge Activity
--- NOTE | 2018-05-09 18:06 | PDOC ---
History of Present Illness - General Chief Complaint: Laceration Stated Complaint: LACERATION Time Seen by Provider: 05/09/18 17:02 History Source: Patient Exam Limitations: No Limitations - History of Present Illness Initial Comments: 05/09/18 18:02 Cutting chicken at home, preparing dinner when she slipped and incised the palmar aspect of the left hand at the second MCP. Patient's full range of motion of finger, neurovascularly intact Occurred: reports: just prior to arrival, this afternoon Severity: reports: mild Pain Location: reports: upper extremity (left hand ) Associated Symptoms (Fall): denies symptoms Past History - Travel Traveled outside of the country in the last 30 days: No Close contact w/someone who was outside of country & ill: No - Past Medical History Allergies/Adverse Reactions: Allergies Allergy/AdvReac Type Severity Reaction Status Date / Time sulfamethoxazole Allergy Verified 05/09/18 17:00 [From Bactrim] trimethoprim [From Bactrim] Allergy Verified 05/09/18 17:00 Home Medications: Ambulatory Orders Levothyroxine [Synthroid -] 150 mcg PO HS 10/15/15 Spironolactone 25 mg PO BID 07/15/17 metFORMIN HCL [Metformin HCl] 500 mg PO BID 11/27/17 Cardiac Disorders: Yes (IRREGULAR HEARTBEAT, palpitations) COPD: No Diabetes: Yes Thyroid Disease: Yes (HYPER, GRAVES DISEASE, pcos) - Surgical History Abdominal Surgery: Yes (PARTIAL TUMMY TUCK) - Immunization History Immunization Up to Date: No - Suicide/Smoking/Psychosocial Hx Smoking Status: Yes Smoking History: Former smoker Have you smoked in the past 12 months: No Number of Cigarettes Smoked Daily: 2 If you are a former smoker, when did you quit?: 2014 Cigars Per Day: 3 Information on smoking cessation initiated: No 'Breaking Loose' booklet given: 11/16/13 Hx Alcohol Use: No Drug/Substance Use Hx: No Substance Use Type: None Review of Systems - Review of Systems Able to Perform ROS?: Yes Is the patient limited Kiswahili proficient: Yes Constitutional: Yes: See HPI. No: Symptoms Reported, Malaise HEENTM: No: Symptoms Reported Musculoskeletal: Yes: Symptoms Reported, See HPI Integumentary: Yes: Symptoms Reported, See HPI All Other Systems: Reviewed and Negative *Physical Exam - Vital Signs Last Vital Signs Temp Pulse Resp BP Pulse Ox 98.7 F 81 18 129/76 96 05/09/18 17:00 05/09/18 17:00 05/09/18 17:00 05/09/18 17:00 05/09/18 17:00 - Physical Exam General Appearance: Yes: Nourished, Appropriately Dressed, Apparent Distress HEENT: positive: Normal ENT Inspection, TMs Normal, Pharynx Normal Neck: positive: Tender, Supple Extremity: positive: Normal Capillary Refill, Normal Inspection, Normal Range of Motion Integumentary: positive: Normal Color, Dry, Warm, Other (1 cm laceration at MCP palmar aspect of left hand index finger. Patient has full range of motion of finger, strong flexion and extension against resistance, neurovascular intact distal to injury.) Neurologic: positive: science interpreter II-XII NML intact, Fully Oriented, Alert, Normal Mood/ Affect, Normal Response, Motor Strength 5/5 Procedures - Laceration/Wound Repair Left Volar Hand Wound Length: to 2.5 cm Wound Explored: clean Wound's Depth, Shape: superficial Irrigated w/ Saline: Yes Betadine Prep: Yes Anesthesia: 1% Lidocaine Wound Debrided: minimal Wound Repaired With: Sutures Suture Size/Type: 5:0 Number of Sutures: 4 Sterile Dressing Applied: Yes Progress Note - Progress Note Progress Note: Hand laceration repaired *DC/Admit/Observation/Transfer Diagnosis at time of Disposition: Laceration of hand Qualifiers: Encounter type: initial encounter Foreign body presence: without foreign body Laterality: left Qualified Code(s): S61.412A - Laceration without foreign body of left hand, initial encounter - Discharge Dispostion Disposition: HOME Condition at time of disposition: Stable Decision to Admit order: No - Referrals Referrals: Diana Ingram MD [Primary Care Provider] - - Patient Instructions Printed Discharge Instructions: DI for Laceration Repair Additional Instructions: Rest, elevate, avoid strenuous activity or heavy lifting until sutures are removed Leave dressing on for the next 24 hours, Then may remove dressing gently and wash area with soap and water. Reapply bacitracin ointment and dressing daily for the next 5 days On day #6 keep the wound protected and cover as needed until sutures are removed allowing wound to start to dry May use Tylenol or Motrin for pain relief Suture removal in : 7-10 Days - Post Discharge Activity Forms/Work/School Notes: Back to Work
[2018-05-09] MEDS ORDERED: IBUPROFEN 600 MG TABLET (FP) PO ONE (18:09)
== END 2018-05-09 18:15 | disposition home or self-care (01) ==
LOC: JERFT 16:55
PROC: 0HQGXZZ Repair Left Hand Skin, External Approach (ICD-10-PCS; principal; 2018-05-09)
DX: S61.412A Laceration without foreign body of left hand, initial encounter (principal); W26.0XXA Contact with knife, initial encounter; Y93.G1 Activity, food preparation and clean up; Y92.030 Kitchen in apartment as the place of occurrence of the external cause; Y99.8 Other external cause status
CPT/HCPCS: 12001; 99281-25

== ENCOUNTER 2018-08-08 10:16 | Emergency (ER) | payer OTHER ==
[2018-08-08 10:48] VITALS: BP 111/83; PULSE 89; TEMP 98.5; BMI 41.9
--- NOTE | 2018-08-08 11:10 | PDOC ---
History of Present Illness - General Chief Complaint: Abscess Boil Stated Complaint: PAIN Time Seen by Provider: 08/08/18 11:05 History Source: Patient Exam Limitations: No Limitations - History of Present Illness Initial Comments: 08/08/18 patient came for evaluation of growing pilonidal abscess. States has suffered since age 6 of multiple abscesses including hidradenitis with skin grafting and surgical excision of cysts. Multiple episodes of pilonidal cysts states at least twice yearly. States onset of this abscess started approximately 2 days ago and is progressively worsened. Has been soaking but no drainage or pointing less far. Denies fever but states has exquisite pain. Occurred: reports: yesterday Severity: reports: moderate, severe Pain Location: reports: back Modifying Factors: improves with: None Associated Symptoms (Fall): headache Past History - Travel Traveled outside of the country in the last 30 days: No Close contact w/someone who was outside of country & ill: No - Past Medical History Allergies/Adverse Reactions: Allergies Allergy/AdvReac Type Severity Reaction Status Date / Time sulfamethoxazole Allergy Verified 08/08/18 10:41 [From Bactrim] trimethoprim [From Bactrim] Allergy Verified 08/08/18 10:41 Home Medications: Ambulatory Orders Levothyroxine [Synthroid -] 150 mcg PO HS 10/15/15 Spironolactone 25 mg PO BID 07/15/17 metFORMIN HCL [Metformin HCl] 500 mg PO BID 11/27/17 Clindamycin [Cleocin -] 300 mg PO TID #21 capsule 08/08/18 Oxycodone HCl/Acetaminophen [Percocet 5-325 mg Tablet -] 1 - 2 tab PO Q4H PRN # 10 tablet MDD 4 08/08/18 Cardiac Disorders: Yes (IRREGULAR HEARTBEAT, palpitations) COPD: No Diabetes: Yes Thyroid Disease: Yes (HYPER, GRAVES DISEASE, pcos) - Surgical History Abdominal Surgery: Yes (PARTIAL TUMMY TUCK) - Immunization History Immunization Up to Date: No - Suicide/Smoking/Psychosocial Hx Smoking Status: Yes Smoking History: Never smoked Have you smoked in the past 12 months: No Number of Cigarettes Smoked Daily: 2 If you are a former smoker, when did you quit?: 2014 Cigars Per Day: 3 Information on smoking cessation initiated: No 'Breaking Loose' booklet given: 11/16/13 Hx Alcohol Use: No Drug/Substance Use Hx: No Substance Use Type: None Review of Systems - Review of Systems Able to Perform ROS?: Yes Is the patient limited Nepali proficient: Yes Constitutional: Yes: Symptoms Reported, See HPI, Malaise. No: Fever HEENTM: No: Symptoms Reported Respiratory: No: Symptoms reported Cardiac (ROS): No: Symptoms Reported ABD/GI: No: Symptoms Reported : No: Symptoms Reported Integumentary: Yes: Symptoms Reported, See HPI, Erythema, Lesions, Lumps All Other Systems: Reviewed and Negative *Physical Exam - Vital Signs Last Vital Signs Temp Pulse Resp BP Pulse Ox 98.5 F 89 16 111/83 99 08/08/18 10:41 08/08/18 10:41 08/08/18 10:41 08/08/18 10:41 08/08/18 10:41 - Physical Exam General Appearance: Yes: Nourished, Appropriately Dressed, Apparent Distress, Mild Distress, Moderate Distress HEENT: positive: JESSI, Normal ENT Inspection, TMs Normal, Pharynx Normal Neck: negative: Tender Extremity: positive: Normal Capillary Refill Integumentary: positive: Warm, Erythema Neurologic: positive: tenter feeder II-XII NML intact, Fully Oriented, Alert, Normal Mood/ Affect, Motor Strength 5/5 Progress Note - Progress Note Progress Note: Needle aspiration of pilonidal area did not yield significant purulent drainage or pus. Therefore with discussion we will hold for incision and drainage until lesion is fluctuant and pointing. Patient understands need to continue to soak and will initiate clindamycin medication as patient states is having reactions to sulfa. Given #10 Percocet tablets for severe pain *DC/Admit/Observation/Transfer Diagnosis at time of Disposition: Abscess - Discharge Dispostion Disposition: HOME Condition at time of disposition: Stable Decision to Admit order: No - Prescriptions Prescriptions: Clindamycin [Cleocin -] 300 mg PO TID #21 capsule Oxycodone HCl/Acetaminophen [Percocet 5-325 mg Tablet -] 1 - 2 tab PO Q4H PRN # 10 tablet MDD 4 PRN Reason: Pain - Referrals Referrals: Diana Ingram MD [Primary Care Provider] - Yevgeniy Kilpatrick MD [Staff Physician] - - Patient Instructions Printed Discharge Instructions: DI for Incision and Drainage of a Skin Abscess Additional Instructions: Rest, keep area elevated. Avoid strenuous activity or exercise until wound is healed Use hot soaks to area to bring more blood to the surface and encourage drainage May change dressings as needed to keep clean - trying to avoid removal of packing for 2 days. If packing needs to be changed, return to emergency department or with your followup physician for wound care and evaluation and repacking as needed If packing needs to be removed, then in 2 days, while in the shower remove dressing and quickly pull the packing taken out. Allow water from shower to wash area thoroughly for 2-3 minutes, and pat dry upon exit of shower and replace dressing. Change his dressing daily until the wound is completely healed. May use Tylenol or Motrin for mild pain relief Use stronger medications as directed and prescribed Continue all medications as prescribed Followup with private physician in 2-3 days for wound check Return to emergency Department for worsening swelling, pain, redness, fevers as needed - Post Discharge Activity Forms/Work/School Notes: Back to Work
[2018-08-08] MEDS ORDERED: IBUPROFEN 600 MG TABLET (FP) PO ONE ×2 (11:24→11:29)
[2018-08-08] MEDS ORDERED: CLINDAMYCIN HCL 300 MG CAPSULE PO ONE (11:25)
[2018-08-08] MEDS ORDERED: CLINDAMYCIN HCL 150 MG CAPSULE (FP) ONE (11:46)
== END 2018-08-08 11:55 | disposition home or self-care (01) ==
LOC: JERFT 10:16
PROC: 0H96X0Z Drainage of Back Skin with Drainage Device, External Approach (ICD-10-PCS; principal; 2018-08-08)
DX: L05.01 Pilonidal cyst with abscess (principal); E05.00 Thyrotoxicosis with diffuse goiter without thyrotoxic crisis or storm
CPT/HCPCS: 10080; 87070; 87205; 99281-25

== ENCOUNTER 2018-10-14 16:22 | Emergency (ER) | payer OTHER ==
[2018-10-14 16:40] VITALS: BP 140/83; PULSE 95; TEMP 99.4; BMI 41.9
[2018-10-14] MEDS ORDERED: KETOROLAC TROMETHAMINE 60 MG/2 ML VIAL IM ONE (17:05)
--- NOTE | 2018-10-14 17:08 | PDOC ---
History of Present Illness - General Chief Complaint: Chest Pain Stated Complaint: CHEST PAIN, FEVER Time Seen by Provider: 10/14/18 16:59 History Source: Patient Exam Limitations: No Limitations - History of Present Illness Initial Comments: 10/14/18 17:03 28 yr female with c/o cough nasal congestion, headache diagnosed with bronchitis 10/11/18 give zpack on day 3. no fever no chills no vomiting. no diarrhea. no allergies past smoker. Pt has history of graves disease, PCOS. 10/14/18 17:06 Past History - Past Medical History Allergies/Adverse Reactions: Allergies Allergy/AdvReac Type Severity Reaction Status Date / Time sulfamethoxazole Allergy Verified 10/14/18 16:37 [From Bactrim] trimethoprim [From Bactrim] Allergy Verified 10/14/18 16:37 Home Medications: Ambulatory Orders Azithromycin [Zithromax -] 250 mg PO UTDICT 10/14/18 Ibuprofen 600 mg PO TID PRN #30 tablet 10/14/18 Cardiac Disorders: Yes (IRREGULAR HEARTBEAT, palpitations) COPD: No CHF: No Diabetes: Yes Thyroid Disease: Yes (HYPER, GRAVES DISEASE, pcos) - Surgical History Abdominal Surgery: Yes (PARTIAL TUMMY TUCK) - Immunization History Immunization Up to Date: No - Suicide/Smoking/Psychosocial Hx Smoking Status: Yes Smoking History: Never smoked Have you smoked in the past 12 months: No Number of Cigarettes Smoked Daily: 2 If you are a former smoker, when did you quit?: 2013 Cigars Per Day: 3 Information on smoking cessation initiated: No 'Breaking Loose' booklet given: 11/16/13 Hx Alcohol Use: No Drug/Substance Use Hx: No Substance Use Type: None *Physical Exam - Vital Signs Last Vital Signs Temp Pulse Resp BP Pulse Ox 99.4 F 95 H 16 140/83 100 10/14/18 16:37 10/14/18 16:37 10/14/18 16:37 10/14/18 16:37 10/14/18 16:37 - Physical Exam General Appearance: Yes: Nourished, Appropriately Dressed HEENT: positive: EOMI, JESSI, TMs Normal, Pharynx Normal, Nasal Congestion Neck: positive: Supple. negative: Tender Respiratory/Chest: positive: Lungs Clear, Normal Breath Sounds. negative: Chest Tender, Rhonchi, Wheezing Cardiovascular: positive: Regular Rhythm, Regular Rate Musculoskeletal: positive: Normal Inspection Extremity: positive: Normal Capillary Refill, Normal Inspection, Normal Range of Motion Neurologic: positive: Fully Oriented, Alert, Normal Mood/Affect, Normal Response , Motor Strength 5/5, Finger to Nose (intact), Other. negative: Numbness, Sensory Deficit Medical Decision Making - Medical Decision Making 10/14/18 17:04 cc: cough headache , photophobia, neg abd pain lungs CTA no fever no chills will give toradol IM *DC/Admit/Observation/Transfer Diagnosis at time of Disposition: Headache Qualifiers: Headache type: unspecified Headache chronicity pattern: acute headache Intractability: not intractable Qualified Code(s): R51 - Headache - Discharge Dispostion Disposition: HOME Condition at time of disposition: Good - Prescriptions Prescriptions: Ibuprofen 600 mg PO TID PRN #30 tablet PRN Reason: Headache - Referrals Referrals: Diana Ingram MD [Primary Care Provider] - - Patient Instructions Additional Instructions: drink pleanty of fluids avoid bright lights loud noises, you should also take Benadryl 50mg at bedtime for sleep and for headache water is best 2 liters a day take ibuprofen every 8hrs for headache , fever or body aches increase vitamin C intake follow with your doctor next week if any worsening symptoms - Post Discharge Activity
[2018-10-14] MEDS ORDERED: KETOROLAC TROMETHAMINE 60 MG/2 ML VIAL ONE (17:31)
--- NOTE | 2019-01-05 15:03 | EKG ---
Test Reason : Blood Pressure : / mmHG Vent. Rate : 108 BPM Atrial Rate : 108 BPM P-R Int : 166 ms QRS Dur : 088 ms QT Int : 332 ms P-R-T Axes : 043 055 041 degrees QTc Int : 444 ms SINUS TACHYCARDIA Confirmed by KENYA SHEPPARD MD ([id number]) on 01/05/2019 3:03:21 PM Referred By: Confirmed By:KENYA SHEPPARD MD
== END 2018-10-14 17:54 | disposition home or self-care (01) ==
LOC: JERFT 16:22
DX: R51 Headache (principal); E11.9 Type 2 diabetes mellitus without complications; E05.00 Thyrotoxicosis with diffuse goiter without thyrotoxic crisis or storm; E28.2 Polycystic ovarian syndrome
CPT/HCPCS: 84703; 93005; 93010; 99281-25

== ENCOUNTER 2018-10-30 12:55 | Emergency (ER) | payer OTHER ==
[2018-10-30 13:06] VITALS: BMI 41.0
[2018-10-30] MEDS ORDERED: SODIUM CHLORIDE 1,000 ML IV STA (13:42)
[2018-10-30] MEDS ORDERED: ONDANSETRON 4 MG/2 ML VIAL IVPUSH ONE (13:43)
--- NOTE | 2018-10-30 13:45 | PDOC ---
Attending Attestation - Resident Resident Name: Akhil Chaves - ED Attending Attestation I have performed the following: I have examined & evaluated the patient, The case was reviewed & discussed with the resident, I agree w/resident's findings & plan, Exceptions are as noted - HPI HPI: 10/30/18 15:30 The patient is a 28 year old female, with a significant past medical history of diabetes, PCOS, hidradenitis, and Graves disease, who presents to the emergency department with, 2 days of diarrhea. Patient describes her diarrhea as watery, nonbloody, and approximately 6 episodes. She endorses an associated nausea without emesis and epigastric discomfort, prompting her visit to the ER. She reports a sore throat and cough last week for which she received steroids and had a negative strep test at urgent care. 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 She denies recent fevers, chills, headache or dizziness. She denies recent vomit or constipation. She denies recent dysuria, frequency, urgency or hematuria. Denies vaginal DC or bleeding. She denies recent chest pain or shortness of breath. Allergies: Sulfamethoxazole, trimethoprim Past surgical history: Tummy tuck. . Social history: Former smoker. - Physicial Exam PE: 10/30/18 16:34 GENERAL: Awake, alert, and fully oriented, in no acute distress EYES: PERRLA, EOMI, sclera anicteric, conjunctiva clear ENT: Nares patent, oropharynx clear without exudates, erythema, swelling or petechiae. Uvula midline. Moist mucosa NECK: Normal ROM, supple, no lymphadenopathy, JVD, or masses LUNGS: Breath sounds equal, clear to auscultation bilaterally. No wheezes, and no crackles HEART: Regular rate and rhythm, normal S1 and S2, no murmurs, rubs or gallops +ABDOMEN: +LLQ tenderness. Minimal epigastric tenderness. Soft, nondistended, normoactive bowel sounds. No guarding, no rebound. No masses PELVIC: No midline or R adnexal ttp, +L adnexal ttp. No discharge or blood in vault. No CMT. EXTREMITIES: Normal range of motion, no edema. No cords, erythema, or tenderness NEUROLOGICAL: Normal speech, cranial nerves intact, equal strength and sensation b/l, normal gait SKIN: Warm, Dry, normal turgor, no rashes or lesions noted. - Medical Decision Making 10/30/18 16:38 28yo F presents to the ED with nausea and 6 episodes of non blood diarrhea. Vitals wnl. Exam with LLQ ttp and mild epigastric ttp. +L adnexal ttp. Plan for TVUS to eval for ovarian cyst vs other pathology. DDx for nausea/diarrhea includes gastroenteritis vs colitis vs diverticulits. Plan -labs -UA -US -IVF -reassess 10/30/18 19:18 No diarrhea in the ED TVUS with no visualization of the ovaries CTAP reveals ovarian cyst, likely cause of LLQ ttp Pain well controlled with toradol, ambulating in ED, requests DC and work note for today and tomorrow which nurse has provided Pt to f/u with [facility] within 2-3 days I discussed the physical exam findings, ancillary test results and final diagnoses with the patient. I answered all of the patient's questions. The patient was satisfied with the care received and felt comfortable with the discharge plan and treatment plan. The patient will call their primary care physician within 24 hours to arrange follow-up and will return to the Emergency Department with any new, persistent or worsening symptoms. <Ba Max - Last Filed: 10/30/18 19:34> Attestations - Attestations 10/30/18 16:41 Documentation prepared by Jamey Nathan, acting as medical center representative for Ba Max MD. <Jamey Nathan - Last Filed: 10/30/18 16:41>
[2018-10-30] MEDS ORDERED: ONDANSETRON 4 MG/2 ML VIAL ONE (13:49)
--- NOTE | 2018-10-30 14:20 | PDOC ---
History of Present Illness - General Chief Complaint: Pain Stated Complaint: ABD PAIN Time Seen by Provider: 10/30/18 12:59 - History of Present Illness Initial Comments: 10/30/18 14:38 28f with pmh of [place] rom[place] presents to the ED for nausea and watery diarrhea since last night. She also complains of upper abdominal pain, right sided and epigastric. Hasn't been hungry since then. 4 episodes of diarrhea total. Has not tried taking any medication for the pain or for the diarrhea. Past History - Past Medical History Allergies/Adverse Reactions: Allergies Allergy/AdvReac Type Severity Reaction Status Date / Time sulfamethoxazole Allergy Verified 10/30/18 12:57 [From Bactrim] trimethoprim [From Bactrim] Allergy Verified 10/30/18 12:57 Home Medications: Ambulatory Orders Levothyroxine [Synthroid -] 150 mcg PO DAILY 10/30/18 Multivitamin [Multiple Vitamins] 1 each PO DAILY 10/30/18 Cardiac Disorders: Yes (IRREGULAR HEARTBEAT, palpitations) COPD: No CHF: No Diabetes: Yes Thyroid Disease: Yes (HYPER, GRAVES DISEASE, pcos) - Surgical History Abdominal Surgery: Yes (PARTIAL KEN[place] ROMO) - Immunization History Immunization Up to Date: No - Suicide/Smoking/Psychosocial Hx Smoking Status: Yes Smoking History: Never smoked Have you smoked in the past 12 months: No Number of Cigarettes Smoked Daily: 2 If you are a former smoker, when did you quit?: 2014 Cigars Per Day: 3 Information on smoking cessation initiated: No 'Breaking Loose' booklet given: 11/16/13 Hx Alcohol Use: No Drug/Substance Use Hx: No Substance Use Type: None Review of Systems - Review of Systems Able to Perform ROS?: Yes Is the patient limited British proficient: No Constitutional: No: Symptoms Reported HEENTM: No: Symptoms Reported Respiratory: No: Symptoms reported Cardiac (ROS): No: Symptoms Reported ABD/GI: Yes: See HPI : No: Symptoms Reported Musculoskeletal: No: Symptoms Reported Integumentary: No: Symptoms Reported Neurological: No: Symptoms reported All Other Systems: Reviewed and Negative *Physical Exam - Vital Signs Last Vital Signs Temp Pulse Resp BP Pulse Ox 98.5 F 86 16 116/71 99 10/30/18 12:55 10/30/18 12:55 10/30/18 12:55 10/30/18 12:55 10/30/18 12:55 - Physical Exam General Appearance: Yes: Appropriately Dressed, Moderate Distress, Obese HEENT: positive: EOMI, JESSI, Normal ENT Inspection Respiratory/Chest: positive: Lungs Clear, Normal Breath Sounds. negative: Chest Tender, Respiratory Distress Cardiovascular: positive: Regular Rhythm, Regular Rate, S1, S2 Gastrointestinal/Abdominal: positive: Normal Bowel Sounds, Tender (upper right quandrant and epigastrium), Soft, Distended. negative: Rebound Musculoskeletal: positive: Normal Inspection. negative: CVA Tenderness Extremity: positive: Normal Capillary Refill, Normal Inspection, Normal Range of Motion Integumentary: positive: Normal Color, Dry, Warm Neurologic: positive: Fully Oriented, Alert, Normal Mood/Affect, Normal Response , Motor Strength 5/5 Moderate Sedation - Procedure Monitoring Vital Signs: Procedure Monitoring Vital Signs Temperature 98.5 F 10/30/18 12:55 Pulse Rate 86 10/30/18 12:55 Respiratory Rate 16 10/30/18 12:55 Blood Pressure 116/71 10/30/18 12:55 O2 Sat by Pulse Oximetry (%) 99 10/30/18 12:55 ED Treatment Course - LABORATORY CBC & Chemistry Diagram: 10/30/18 13:48 10/30/18 14:00 - Medications Given in the ED: ED Medications Discontinued Medications Generic Name Dose Route Start Last Admin Trade Name Freq PRN Reason Stop Dose Admin Ondansetron HCl 4 mg 10/30/18 13:43 10/30/18 13:55 Zofran Injection IVPUSH 10/30/18 13:44 4 mg ONCE ONE Administration Medical Decision Making - Medical Decision Making 10/30/18 15:04 28 with diarrhea and upper abd pain. Gallstones vs viral gastroenteritis vs pancreatitis POCUS u/S negative for gallstones. Will obtain labs, lipase, treat with ns and zofran, reassess. 10/30/18 19:07 All labs negative, TVUS : unable to visualize ovaries. CT Abdomen negative. ok to discharge *DC/Admit/Observation/Transfer Diagnosis at time of Disposition: Abdominal pain - Discharge Dispostion Disposition: HOME Condition at time of disposition: Improved Decision to Admit order: No - Referrals - Patient Instructions Printed Discharge Instructions: Viral Gastroenteritis Additional Instructions: Follow up with your OBGYN. Come back to the emergency department for any new, worsening or concerning symptom. - Post Discharge Activity
[2018-10-30 14:21] LABS: BASO % 0.5 % (0-2.0); EOS % 1.2 % (0-4.5); HEMATOCRIT 37.4 % (32.4-45.2); LYMPH % 20.8 % (8-40); MCH 29.3 pg (25.7-33.7); MCHC 34.8 g/dl (32.0-36.0); MONO % 5.5 % (3.8-10.2); PLATELET COUNT 182 K/MM3 (134-434); RBC 4.45 M/mm3 (3.60-5.2); RDW 13.9 % (11.6-15.6); WHITE BLOOD COUNT 7.1 K/mm3 (4.0-10.0)
[2018-10-30 14:24] LABS: URINE APPEARANCE CLEAR; URINE BILIRUBIN NEGATIVE (<2.0 mg/dL); URINE COLOR LTYELLOW; URINE GLUCOSE (UA) NEGATIVE (NEGATIVE); URINE KETONE TRACE (NEGATIVE); URINE LEUK ESTERASE NEGATIVE (NEGATIVE); URINE NITRITE NEGATIVE (NEGATIVE); URINE PROTEIN NEGATIVE (NEGATIVE); URINE UROBILINOGEN NEGATIVE mg/dL (0.2-1.0)
[2018-10-30 14:30] LABS: EPI CELLS RARE /HPF (FEW); URINE BACTERIA RARE /hpf (NONE SEEN); URINE MUCUS RARE
[2018-10-30 15:15] LABS: ALBUMIN 3.5 g/dl (3.4-5.0); ALK PHOS 105 U/L (45-117); ANION GAP 7 MMOL/L (8-16); BILIRUBIN,TOTAL 0.3 mg/dL (0.2-1); BLOOD UREA NITROGEN 16 mg/dL (7-18); CALCIUM 8.3 mg/dL (8.5-10.1); CHLORIDE 105 mmol/L (98-107); CO2 28 mmol/L (21-32); CREATININE 0.7 mg/dL (0.55-1.3); GLUCOSE,RANDOM 76 mg/dL (74-106); LIPASE 77 U/L (73-393); POTASSIUM 4.1 mmol/L (3.5-5.1); SGOT/AST 20 U/L (15-37); SGPT/ALT 24 U/L (13-61); SODIUM 139 mmol/L (136-145); TOT PROT 7.3 g/dl (6.4-8.2)
[2018-10-30 18:54] VITALS: BP 106/66; PULSE 72; TEMP 98.2
[2018-10-30] MEDS ORDERED: KETOROLAC TROMETHAMINE 15 MG/ML VIAL IVPUSH ONE (19:16)
[2018-10-30] MEDS ORDERED: KETOROLAC TROMETHAMINE 15 MG/ML VIAL ONE (19:17)
== END 2018-10-30 19:26 | disposition home or self-care (01) ==
LOC: JER 12:55
PROC: 3E0333Z Introduction of Anti-inflammatory into Peripheral Vein, Percutaneous Approach (ICD-10-PCS; principal; 2018-10-30)
PROC: 3E033GC Introduction of Other Therapeutic Substance into Peripheral Vein, Percutaneous Approach (ICD-10-PCS; 2018-10-30)
PROC: 3E0337Z Introduction of Electrolytic and Water Balance Substance into Peripheral Vein, Percutaneous Approach (ICD-10-PCS; 2018-10-30)
DX: R10.10 Upper abdominal pain, unspecified (principal); Z87.891 Personal history of nicotine dependence; E07.9 Disorder of thyroid, unspecified; E11.9 Type 2 diabetes mellitus without complications; R00.2 Palpitations
CPT/HCPCS: 36415; 74177-TC; 76830-TC; 80053; 81003; 81015; 83690; 84703; 85025; 87086; 96361; 96374; 96375; 99283-25; J7030

== ENCOUNTER 2019-03-15 12:16 | Emergency (ER) | payer OTHER ==
[2019-03-15 12:32] VITALS: BP 132/72; PULSE 83; TEMP 97.8; BMI 41.1
--- NOTE | 2019-03-15 12:52 | PDOC ---
History of Present Illness - General Chief Complaint: Shortness of Breath Stated Complaint: CHEST TIGHTNESS Time Seen by Provider: 03/15/19 12:44 History Source: Patient - History of Present Illness Timing/Duration: reports: other Severity: reports: mild Past History - Past Medical History Allergies/Adverse Reactions: Allergies Allergy/AdvReac Type Severity Reaction Status Date / Time sulfamethoxazole Allergy Verified 03/15/19 12:28 [From Bactrim] trimethoprim [From Bactrim] Allergy Verified 03/15/19 12:28 Home Medications: Ambulatory Orders Levothyroxine [Synthroid -] 150 mcg PO DAILY 10/30/18 Multivitamin [Multiple Vitamins] 1 each PO DAILY 10/30/18 Naproxen [Naprosyn -] 500 mg PO BID PRN #14 tablet 11/01/18 Clindamycin [Cleocin -] 300 mg PO Q6HPO #28 capsule 03/15/19 Prednisone [Deltasone] 20 mg PO DAILY #11 tablet 03/15/19 Cardiac Disorders: Yes (IRREGULAR HEARTBEAT, palpitations) COPD: No CHF: No Diabetes: Yes Thyroid Disease: Yes (HYPER, GRAVES DISEASE, pcos) - Surgical History Abdominal Surgery: Yes (PARTIAL TUMMY TUCK) - Immunization History Immunization Up to Date: Yes - Suicide/Smoking/Psychosocial Hx Smoking Status: Yes Smoking History: Never smoked Have you smoked in the past 12 months: No Number of Cigarettes Smoked Daily: 2 If you are a former smoker, when did you quit?: 2013 Cigars Per Day: 3 'Breaking Loose' booklet given: 11/16/13 Hx Alcohol Use: No Drug/Substance Use Hx: No Substance Use Type: None Review of Systems - Review of Systems Constitutional: No: Chills, Fever Respiratory: Yes: Cough, Shortness of Breath, Wheezing Cardiac (ROS): No: Chest Pain *Physical Exam - Vital Signs Last Vital Signs Temp Pulse Resp BP Pulse Ox 97.8 F 83 18 132/72 98 03/15/19 12:29 03/15/19 12:29 03/15/19 12:29 03/15/19 12:29 03/15/19 12:29 - Physical Exam General Appearance: Yes: Appropriately Dressed. No: Apparent Distress HEENT: positive: Normal Voice Neck: positive: Supple Respiratory/Chest: positive: Lungs Clear, Normal Breath Sounds. negative: Respiratory Distress Cardiovascular: positive: Regular Rate, S1, S2 Integumentary: positive: Dry, Warm Neurologic: positive: Fully Oriented, Alert, Normal Mood/Affect Medical Decision Making - Medical Decision Making 03/15/19 12:46 29 yo F, hidradenitis, asthma (flares up only in the winter per pt), no admissions/intubations, here w/ mostly non-productive cough x 3 days, w/ ? sob. Had wheezing this am that improved w/ rescue inhaler. No CP, f/c. Also complains that her hydradenitis is acting up, noticed painful lesions to inframammary areas bilaterally last night. Has been applying warm compresses with significant relief per patient See exam Mild asthma flare Since improved w/ rescue inhaler Well lizbet and stable w/ clear chest/lungs No need for nebs in ED -dc w/ pred burst Hidradenitis Old healed scars mixed with new minor areas of indurations to inframammary areas b/l, no large, fluctuant areas to I&D -dc w/ warm compresses and abx -to return as needed *DC/Admit/Observation/Transfer Diagnosis at time of Disposition: Hidradenitis Asthma Qualifiers: Asthma severity: mild Asthma persistence: unspecified Asthma complication type : unspecified Qualified Code(s): J45.909 - Unspecified asthma, uncomplicated - Discharge Dispostion Disposition: HOME Condition at time of disposition: Good - Prescriptions Prescriptions: Clindamycin [Cleocin -] 300 mg PO Q6HPO #28 capsule Prednisone [Deltasone] 20 mg PO DAILY #11 tablet - Referrals Referrals: Diana Ingram MD [Primary Care Provider] - - Patient Instructions Printed Discharge Instructions: Asthma -- Adult Additional Instructions: Take prednisone as directed and continue using your rescue inhaler as needed Apply warm compresses to skin lesions and take antibiotic as directed - Post Discharge Activity Forms/Work/School Notes: Back to Work
== END 2019-03-15 13:30 | disposition home or self-care (01) ==
LOC: JER 12:16
DX: J45.909 Unspecified asthma, uncomplicated (principal); L73.2 Hidradenitis suppurativa
CPT/HCPCS: 99281-25

== ENCOUNTER → 2019-04-26 | Emergency (ER) | payer OTHER | END | disposition left against medical advice (07) | LOC: JERFT 14:23 ==

== ENCOUNTER 2019-06-30 15:36 | Emergency (ER) | payer OTHER ==
[2019-06-30 15:45] VITALS: BP 132/62; PULSE 87; TEMP 98.2; BMI 41.1
[2019-06-30] MEDS ORDERED: FLUCONAZOLE 150 MG TABLET PO ONE (17:15)
[2019-06-30 17:20] LABS: HYALINE CASTS 2 /lpf (0-8); PH,URINE 5.5 (5.0-8.0); URINE APPEARANCE CLEAR; URINE BACTERIA 5.2 /hpf (NEGATIVE); URINE BILIRUBIN NEGATIVE (NEGATIVE); URINE COLOR YELLOW; URINE GLUCOSE (UA) NEGATIVE (NEGATIVE); URINE KETONE TRACE (NEGATIVE); URINE LEUK ESTERASE NEGATIVE (NEGATIVE); URINE NITRITE NEGATIVE (NEGATIVE); URINE PROTEIN NEGATIVE (NEGATIVE); URINE RBC 8 /hpf (0-4); URINE UROBILINOGEN 0.2 mg/dL (0.2-1.0); URINE WBC 1 /hpf (0-5)
[2019-06-30] MEDS ORDERED: FLUCONAZOLE 100 MG TABLET (UD) ONE (17:21)
--- NOTE | 2019-06-30 17:29 | PDOC ---
History of Present Illness - General Chief Complaint: Vaginal Sxs Stated Complaint: VAGINAL DISCHARGE Time Seen by Provider: 06/30/19 16:10 History Source: Patient Exam Limitations: No Limitations - History of Present Illness Initial Comments: 06/30/19 17:24 29 yo F w/ a h/o PCOS, grave's disease, comes in c/o 2 weeks of whitish thick cottage-cheese like vaginal discharge with vaginal itching. She used an OTC homeopathic medication, yeast guard which she thinks helped her with the itching but she is still having discharge. NO other complaints today. No burning /pain on urination, no yellow-green vaginal discharge. (+)sexually active with one partner, last sexual encounter was June 12, she used protection. NO h/o GC /CT. No fever/chills, no NVD, no abdominal pain. Past History - Past Medical History Allergies/Adverse Reactions: Allergies Allergy/AdvReac Type Severity Reaction Status Date / Time sulfamethoxazole Allergy Verified 06/30/19 15:42 [From Bactrim] trimethoprim [From Bactrim] Allergy Verified 06/30/19 15:42 Home Medications: Ambulatory Orders Levothyroxine [Synthroid -] 150 mcg PO DAILY 10/30/18 Multivitamin [Multiple Vitamins] 1 each PO DAILY 10/30/18 Cardiac Disorders: Yes (IRREGULAR HEARTBEAT, palpitations) COPD: No CHF: No Diabetes: Yes Thyroid Disease: Yes (HYPER, GRAVES DISEASE, pcos) Other medical history: pcos - Surgical History Abdominal Surgery: Yes (PARTIAL TUMMY TUCK) - Immunization History Immunization Up to Date: Yes - Suicide/Smoking/Psychosocial Hx Smoking Status: Yes Smoking History: Never smoked Have you smoked in the past 12 months: No Number of Cigarettes Smoked Daily: 2 If you are a former smoker, when did you quit?: 2013 Cigars Per Day: 3 'Breaking Loose' booklet given: 11/16/13 Hx Alcohol Use: No Drug/Substance Use Hx: No Substance Use Type: None Review of Systems - Review of Systems Able to Perform ROS?: Yes Constitutional: No: Chills, Fever, Malaise, Night Sweats HEENTM: No: Eye Pain, Recent change in vision, Throat Pain Respiratory: No: Cough, Shortness of Breath Cardiac (ROS): No: Chest Pain, Palpitations, Chest Tightness ABD/GI: No: Diarrhea, Nausea, Vomiting, Abdominal cramping : No: Dysuria, Hematuria Musculoskeletal: No: Back Pain Integumentary: No: Rash Neurological: No: Headache, Numbness, Dizziness Psychiatric: No: Change in Appetite Endocrine: No: Unexplained Weight Loss *Physical Exam - Vital Signs Last Vital Signs Temp Pulse Resp BP Pulse Ox 98.2 F 87 16 132/62 98 06/30/19 15:40 06/30/19 15:40 06/30/19 15:40 06/30/19 15:40 06/30/19 15:40 - Physical Exam General Appearance: Yes: Nourished. No: Apparent Distress HEENT: positive: JESSI, Normal ENT Inspection, Normal Voice. negative: Pale Conjunctivae, Scleral Icterus (R), Scleral Icterus (L) Neck: positive: Supple. negative: Decreased range of motion, Tender midline Respiratory/Chest: positive: Lungs Clear, Normal Breath Sounds. negative: Respiratory Distress, Accessory Muscle Use Cardiovascular: positive: Regular Rhythm, Regular Rate Female Pelvic Exam: positive: other (mild thick cottage cheese like discharge, no yellow-green discharge. NO bleeding, no rash). negative: CMT Gastrointestinal/Abdominal: positive: Normal Bowel Sounds, Soft. negative: Tender Musculoskeletal: positive: Normal Inspection. negative: CVA Tenderness, Decreased Range of Motion Extremity: positive: Normal Capillary Refill, Normal Inspection, Normal Range of Motion. negative: Tender, Pedal Edema Integumentary: positive: Normal Color, Dry. negative: Jaundice, Rash Neurologic: positive: Fully Oriented, Alert, Normal Mood/Affect ED Treatment Course - ADDITIONAL ORDERS Additional order review: Laboratory Results 06/30/19 06/30/19 16:45 16:36 Urine Color Yellow Urine Appearance Clear Urine pH 5.5 Ur Specific [place] 1.031 Urine Protein Negative Urine Glucose (UA) Negative Urine Ketones Trace H Urine Blood Trace Urine Nitrite Negative Urine Bilirubin Negative Urine Urobilinogen 0.2 Ur Leukocyte Esterase Negative Urine WBC (Auto) 1 Urine RBC (Auto) 8 Urine Casts (Auto) 2 U Epithel Cells (Auto) 2.0 Urine Bacteria (Auto) 5.2 Urine HCG, Qual Negative Medical Decision Making - Medical Decision Making 06/30/19 17:29 29 yo F w/ vaginal discharge, likely yeast infection vs the medication which she inserted in her vagina. Pt just ate a slice of pizza, will not check FS, will check UA for glucose. Will check UCG and if negative, will give diflucan. CUltures sent for GC/CT. UCG negative, diflucan ordered. Will discharge with PMD follow up Return for worsening/concerning symptoms Pt verbalizes understanding and agrees with plan *DC/Admit/Observation/Transfer Diagnosis at time of Disposition: Vaginal discharge - Discharge Dispostion Disposition: HOME Condition at time of disposition: Stable - Referrals Referrals: Diana Ingram MD [Primary Care Provider] - - Patient Instructions Printed Discharge Instructions: DI for Vaginal Yeast Infection Additional Instructions: Please make a follow up appointment with your OBGYN for this week. Return for worsening/concerning symptoms. - Post Discharge Activity
== END 2019-06-30 17:39 | disposition home or self-care (01) ==
LOC: JERFT 15:36 → JER 15:36 → JERFT 17:39
DX: N89.8 Other specified noninflammatory disorders of vagina (principal); Z87.891 Personal history of nicotine dependence; E11.9 Type 2 diabetes mellitus without complications; E05.00 Thyrotoxicosis with diffuse goiter without thyrotoxic crisis or storm; I49.9 Cardiac arrhythmia, unspecified
CPT/HCPCS: 36415; 81003; 84703; 87086; 87491; 87591; 99282-25

== ENCOUNTER 2020-11-12 18:52 | Emergency (ER) | payer OTHER ==
[2020-11-12 19:08] VITALS: BP 127/78; PULSE 87; TEMP 98.6; BMI 41.9
[2020-11-12] MEDS ORDERED: KETOROLAC TROMETHAMINE 60 MG/2 ML VIAL IM ONE (20:00)
[2020-11-12] MEDS ORDERED: METHOCARBAMOL 500 MG TABLET PO ONE (20:00)
[2020-11-12] MEDS ORDERED: LIDOCAINE 5% TOPICAL PATCH TP ONE (20:00)
[2020-11-12] MEDS ORDERED: KETOROLAC TROMETHAMINE 30 MG/1 ML VIAL ONE (20:31)
[2020-11-12] MEDS ORDERED: LIDOCAINE 5% TOPICAL PATCH ONE (20:31)
[2020-11-12] MEDS ORDERED: METHOCARBAMOL 500 MG TABLET ONE (20:42)
[2020-11-12 22:04] LABS: EPI CELLS >36 /uL (0-25.1); HYALINE CASTS 2 /uL (0-3.1); PH,URINE 5.5 (5.0-8.0); URINE APPEARANCE CLOUDY; URINE BACTERIA 639 /uL (0-1359); URINE BILIRUBIN NEGATIVE (NEGATIVE); URINE COLOR YELLOW; URINE GLUCOSE (UA) NEGATIVE (NEGATIVE); URINE KETONE TRACE (NEGATIVE); URINE LEUK ESTERASE NEGATIVE (NEGATIVE); URINE NITRITE NEGATIVE (NEGATIVE); URINE PROTEIN NEGATIVE (NEGATIVE); URINE WBC 28 /uL (0-25.8)
[2020-11-12 22:05] LABS: HCG,QUALITATIVE URINE Negative
[2020-11-12 23:46] LABS: URINE RBC 40.3 /uL (0-23.9)
== END 2020-11-12 22:28 | disposition home or self-care (01) ==
LOC: JER 18:52
PROC: 3E0233Z Introduction of Anti-inflammatory into Muscle, Percutaneous Approach (ICD-10-PCS; principal; 2020-11-12)
DX: M54.5 Low back pain (principal)
CPT/HCPCS: 81003; 84703; 99284-25